=== PATIENT | male | born 1965 | race Caucasian/White ===

== ENCOUNTER 2022-09-21 11:47 | Inpatient (IN) | payer MEDICARE, SELFPAY ==
[2022-09-21] VITALS (24 sets, daily range): BP systolic 80–114; BP diastolic 57–87; PULSE 80–152; RESP 20–34; TEMP 36.1–36.4; O2SAT 88–98; BMI 19.3; BMI 18.7
--- NOTE | 2022-09-21 12:23 | ECG_ITS ---
[facility] Test Date: 2022-09-21 Pat Name: Ayo Ann Department: Room: Gender: Male Mail Inserter: : 1965 Requested By: Ivory aVllejo Order Number: [id number] Ellison MD: Jana Fragoso M.D. Measurements Intervals [place] Rate: 113 P: 0 NM: 0 QRS: 102 QRSD: 87 T: 270 QT: 309 QTc: 424 Interpretive Statements ATRIAL FLUTTER/TACHYCARDIA WITH RAPID VENTRICULAR RESPONSE RIGHT AXIS DEVIATION [QRS AXIS > 100] ST DEVIATION AND MODERATE T-WAVE ABNORMALITY, CONSIDER INFERIOR ISCHEMIA [-0.1+ mV T-WAVE IN II/aVF] No previous ECG available for comparison Electronically Signed On 09-21-2022 21:59:30 RESTAURANT RECRUITER by Jana Fragoso M.D. [id number]
--- NOTE | 2022-09-21 12:23 | XR_ITS ---
WS: [id number] PORTABLE CHEST HISTORY: chest pain COMPARISON: 07/03/2009 Hyperexpanded lungs. Very mild interstitial thickening. No mass or consolidation. No pleural effusion or pneumothorax. Bilateral nipple shadows are present. Cardiac size: Normal. Mediastinum/Aorta: Normal mediastinum. No osseous abnormality seen. XR/XR chest 1V portable [id number] IMPRESSION: Mild interstitial thickening similar to prior studies. No pneumonia.
--- NOTE | 2022-09-21 12:26 | ED_ITS ---
HPI - SOB/Dyspnea General: Chief Complaint: Shortness of Breath/Dyspnea Stated Complaint: Chest pain and SOB Time Seen by Provider: 09/21/22 12:22 History of Present Illness: HPI Narrative: 56-year-old male with a self-reported history of congestive heart failure and with concerns of shortness of breath and palpitations and racing heart. Patient reports that over the past several months to a year he has had some episodes where his heart will race but usually it will slow down and spontaneously edwige he will begin to feel better today that did not happen in fact it got a little bit worse and that prompted him to come into the emergency department he is a lifelong smoker he just recently stopped smoking. He is short of breath and this is worse with exertion patient denies any recent evaluation by ER physician. Associated symptoms: Reports chest congestion and palpitations; Deny chest pain, hemoptysis or lightheadedness Review of Systems Card: Reports: palpitations and irregular heart rhythm; Denies: chest pain, edema, swelling of feet/ankles or lightheadedness Resp: Reports: dyspnea and chest congestion; Denies: productive cough, non-productive cough, wheezing or hemoptysis Skin/Breast: Denies: rash, pruritus, erythema or skin swelling Physical Exam Const: GENERAL APPEARANCE: in distress OTHER: Thin and chronically ill in appearance Resp: COMMON NORMALS: clear to auscultation bilaterally AUSCULTATION: clear to auscultation bilaterally Cardio: RATE: tachycardic RHYTHM: abnormal rhythm Extremity: NARRATIVE EXTREMITY EXAM: No pedal edema or cyanosis Skin: COMMON NORMALS: no rashes or lesions noted GENERAL SKIN EXAM: no rashes or lesions noted Course Vital Signs: Vital signs: Vital Signs Temperature 97.6 F 09/21/22 11:51 Pulse Rate 112 H 09/21/22 13:00 Respiratory Rate 23 H 09/21/22 13:00 Blood Pressure 114/87 09/21/22 13:00 Pulse Oximetry 95 09/21/22 13:00 Oxygen Delivery Me thod 09/21/22 11:51 MDM - SOB/Dyspnea Medical Decision Making 56-year-old in with concerns of rapid heartbeat and shortness of breath. Dif ferential is broad but it appears that he has atrial fibrillation. We will give him a Cardizem push and standard work-up and reassess. Unfortunately the patient only transiently responded to the Cardizem we will start a drip and plan on admit him into the hospital for further work-up and evaluation. He does appear to be a little bit dry his potassium is just a little bit elevated as well we will give him some IV fluids and closely follow this. I discussed the case with the hospitalist who is agreeable to admit him and cardiac stepdown. We will give a dose of Eliquis to mitigate his thromboembolic events, continue to titrate up Cardizem drip at this point I do not think that he needs cardioverted is not overtly symptomatic and I think if we could get Cardizem titrated his blood pressure would improve somewhat. Differential Diagnosis Likely acute exacerbation of chronic obstructive airways disease, congestive heart failure, community acquired pneumonia, asthma with exacerbation and pulmonary embolism Lab Data 09/21/22 12:24 09/21/22 12:24 Labs/Radiology: Radiology Impressions Chest X-Ray 09/21/22 12:23 IMPRESSION: Mild interstitial thickening similar to prior studies. No pneumonia. Laboratory Results WBC 10.0 10^3/uL (4.0-10.0) 09/21/22 12:24 RBC 4.43 10^6/uL (4.1-5.3) 09/21/22 12:24 Hgb 13.7 g/dL (11.7-16.6) 09/21/22 12:24 Hct 42.8 % (42.0-52.0) 09/21/22 12:24 MCV 96.6 fl (80-94) H 09/21/22 12:24 MCH 30.9 pg (28.0-34.0) 09/21/22 12:24 MCHC 32.0 g/dL (30.0-36.0) 09/21/22 12:24 RDW 15.9 % (12.1-15.1) H 09/21/22 12:24 Plt Count 420 10^3/cmm (130-400) H 09/21/22 12:24 MPV 9.4 fL (7.4-10.4) 09/21/22 12:24 Neut % (Auto) 75.3 % 09/21/22 12:24 Lymph % (Auto) 16.2 % 09/21/22 12:24 [place]on % (Auto) 7.7 % 09/21/22 12:24 Eos % (Auto) 0.3 % 09/21/22 12:24 Baso % (Auto) 0.3 % 09/21/22 12:24 Neut # (Auto) 7.52 10^3/uL (1.8-7.7) 09/21/22 12:24 Lymph # (Auto) 1.6 10^3/uL (0.8-4.8) 09/21/22 12:24 Haralson # (Auto) 0.8 10^3/uL (0.2-0.9) 09/21/22 12:24 Eos # (Auto) 0.0 10^3/uL (0.0-0.8) 09/21/22 12:24 Baso # (Auto) 0.0 10^3/uL (0.0-0.1) 09/21/22 12:24 Nucleated RBC % (auto) 0 % 09/21/22 12:24 Nucleated RBCs # 0.0 /100WBC 09/21/22 12:24 Sodium 133 mmol/L (136-145) L 09/21/22 12:24 Potassium 5.9 mmol/L (3.5-5.1) H 09/21/22 12:24 Chloride 95 mmol/L (98-107) L 09/21/22 12:24 Carbon Dioxide 29 mmol/L (22-29) 09/21/22 12:24 Anion Gap 14.9 (5-19) 09/21/22 12:24 BUN 36 mg/dL (6-20) H 09/21/22 12:24 Creatinine 0.8 mg/dL (0.7-1.2) 09/21/22 12:24 GFR Calculation 100.4 mL/min (90-130) 09/21/22 12:24 Glucose 175 mg/dL (65-115) H 09/21/22 12:24 Calculated Osmolality 289 mOsm/kg (285-295) 09/21/22 12:24 Calcium 9.7 mg/dL (8.5-10.5) 09/21/22 12:24 Total Bilirubin 0.5 mg/dL (0.15-1.2) 09/21/22 12:24 AST 52 U/L (0-40) H 09/21/22 12:24 ALT 78 U/L (0-41) H 09/21/22 12:24 Alkaline Phosphatase 91 U/L (40-130) 09/21/22 12:24 Troponin T Baseline 56 ng/L (0-15) H 09/21/22 12:24 Troponin T 120 Minute 56.34 ng/L (0-15) H 09/21/22 14:08 Delta Troponin T 0.34 ABS# (0-10) 09/21/22 14:08 NT-Pro-B Natriuret Pep 9524 pg/mL (0-125) H 09/21/22 12:24 Total Protein 6.2 g/dL (6.6-8.7) L 09/21/22 12:24 Albumin 3.6 g/dL (3.5-5.2) 09/21/22 12:24 Globulin 2.6 g/dL (1.3-4.6) 09/21/22 12:24 Procalcitonin 0.06 ng/mL (0-0.5) 09/21/22 12:24 EKG Data Atrial flutter with rapid ventricular response: Interpretation: Ventricular rate is 147 flutter waves present nonspecific ST-T wave changes regular rhythm Discharge Plan Discharge Patient Disposition: Admitted As Inpatient Clinical Impression: Atrial fibrillation with rapid ventricular response Condition: Stable Coding Level of Care Code ED Broadcast Correspondent for Wolfgang Fwd Exam Expanded Problem Focused
[2022-09-21] MEDS: dilTIAZem 5 mg/mL SDV 5 mL 20 MG IVP (12:31)
[2022-09-21 12:36] LABS: Basophils % 0.3 %; Eosinophils % 0.3 %; Hematocrit 42.8 % (42.0-52.0); Hemoglobin 13.7 g/dL (11.7-16.6); Lymphocytes # 1.6 10^3/uL (0.8-4.8); Lymphocytes % 16.2 %; Mean Corpuscular Hemoglobin 30.9 pg (28.0-34.0); Mean Corpuscular Volume 96.6 fl (80-94); Mean Platelet Volume 9.4 fL (7.4-10.4); Monocytes # 0.8 10^3/uL (0.2-0.9); Monocytes % 7.7 %; Neutrophils # 7.52 10^3/uL (1.8-7.7); Neutrophils % 75.3 %; Nucleated Red Blood Cells % 0 %; Platelet Count 420 10^3/cmm (130-400); Red Blood Count 4.43 10^6/uL (4.1-5.3); Red Cell Distribution Width 15.9 % (12.1-15.1)
[2022-09-21 12:49] LABS: Troponin(5th) Baseline 56 ng/L (0-15)
[2022-09-21 12:57] LABS: NT Pro B Type Natriuretic Pept 9524 pg/mL (0-125); Procalcitonin 0.06 ng/mL (0-0.5)
[2022-09-21 13:08] LABS: Alanine Aminotransferase 78 U/L (0-41); Albumin Level 3.6 g/dL (3.5-5.2); Alkaline Phosphatase 91 U/L (40-130); Anion Gap 14.9 (5-19); Aspartate Amino Transferase 52 U/L (0-40); Blood Urea Nitrogen 36 mg/dL (6-20); Calcium 9.7 mg/dL (8.5-10.5); Carbon Dioxide 29 mmol/L (22-29); Chloride 95 mmol/L (98-107); Globulin 2.6 g/dL (1.3-4.6); Glomerular Filtration Rate 100.4 mL/min (90-130); Glucose 175 mg/dL (65-115); Osmolality Calculated 289 mOsm/kg (285-295); Potassium 5.9 mmol/L (3.5-5.1); Sodium 133 mmol/L (136-145); Total Bilirubin 0.5 mg/dL (0.15-1.2); Total Protein 6.2 g/dL (6.6-8.7)
[2022-09-21] MEDS: dilTIAZem 100 MG in sodium chloride 0.9% (add-van) 100 ML IV (14:24)
--- NOTE | 2022-09-21 14:26 | ECG_ITS ---
[facility] Test Date: 2022-09-21 Pat Name: Ayo Ann Department: Room: Gender: Male Napper Fixer: : 1965 Requested By: Ivory Vallejo Order Number: [id number] Terra MD: Jana Fragoso M.D. Measurements Intervals [place] Rate: 149 P: 0 OR: 0 QRS: 136 QRSD: 92 T: 0 QT: 279 QTc: 440 Interpretive Statements ATRIAL FLUTTER/TACHYCARDIA WITH RAPID VENTRICULAR RESPONSE RIGHT AXIS DEVIATION ST ELEVATION, CONSIDER SEPTAL INJURY Compared to ECG 09/21/2022 12:42:39 ST (T wave) deviation now present T-wave abnormality no longer present Possible ischemia no longer present Electronically Signed On 09-21-2022 22:16:06 BODY AND FRAME MAN by Jana Fragoso M.D. [id number]
[2022-09-21 14:39] LABS: Troponin 5 2HR 56.34 ng/L (0-15); Troponin 5 2HR Delta 0.34 ABS# (0-10)
[2022-09-21] MEDS: sodium chloride 0.9% 500 ML 999 ML IV (14:39)
[2022-09-21] MEDS: apixaban 5 mg Tablet PO (15:41)
[2022-09-21 15:53] LABS: Magnesium 1.9 mg/dL (1.7-2.3)
--- NOTE | 2022-09-21 16:06 | PM.HP ---
Providers/Chief Complaint Admitting Physician: Vu Holder MD Chief Complaint: Chest pain and SOB History of Present Illness Ayo Ann is a 56 year old male with past medical history of nonischemic cardiomyopathy secondary to alcohol abuse, noncompliance last seen by cardiology in 2011, chronic smoker, last known EF of around 50% presents to the ER today because of chest pain along with difficulty in breathing. In the ER he was found to be in atrial fibrillation with rapid ventricular response. Patient denies any nausea, vomiting, headache, dizziness. He is a current smoker. Denies any current alcohol or recreational drug abuse. Not on any medications and has not seen a physician in a long time. In the ER he was started on Cardizem drip after Cardizem push. Currently on Cardizem drip of 5. Blood pressures 109/71 with heart rate running in 150s. Patient sitting comfortably in bed without complaining of palpitations or dizziness or chest pain currently. Review of Systems General: Reports: 10 or more systems reviewed and unremarkable except in HPI and below Const: Denies: fever(s), chills, body aches, change in appetite, change in weight, malaise, night sweats, diaphoresis, change in sleep pattern, daytime sleepiness or snoring Eyes: Denies: change in vision, blurry vision, photophobia, eye discomfort or eye discharge ENMT: Denies: throat pain, enlarged tonsils, hoarseness, mouth pain, oral sores, dry mouth, tinnitus, nasal congestion or post nasal drip Card: Denies: chest pain, palpitations, irregular heart rhythm, edema, swelling of feet/ankles, lightheadedness, syncope, pre-syncope, dyspnea on exertion, orthopnea, leg pain with exertion or acrocyanosis Resp: Denies: dyspnea, productive cough, non-productive cough, wheezing, stridor, pain on inspiration, change in phlegm color, hemoptysis or chest congestion GI: Denies: abdominal pain, nausea, vomiting, hematemesis, coffee ground emesis, dysphagia, heartburn, diarrhea, constipation, bloating, GI cramping, change in bowel habits, pain on defecation, hematochezia or melena : Denies: flank pain, difficulty urinating, dysuria, urinary frequency, urinary urgency, urinary hesitancy, urinary dribbling, difficulty starting urination, change in urine stream, nocturia or hematuria Musc: Denies: neck pain, back pain, extremity pain, joint pain, joint swelling, joint redness, joint stiffness or limited range of motion Neuro: Denies: headache(s), numbness in extremities, weakness in extremities, sensory changes, lack of coordination, difficulty walking, frequent falls, dizziness, vertigo, confusion, Slurred speech present, difficulty communicating thoughts or seizure-like activity Psych: Denies: anxiety, depression, mood swings, panic attacks, hopelessness or irritability Endo: Denies: polyuria, polydipsia, tired all the time, cold intolerance, excessive sweating, flushing or heat intolerance Luis Daniel/Lymph: Denies: easy bruising or easy bleeding All/Imm: Denies: tongue swelling, facial swelling or acute wheezing Medications/Allergies Home Medications Medication Instructions Recorded Confirmed Last Taken Type Fishbiotic Amoxil 500mg 500 mg PO DAILY 09/21/22 09/21/22 09/16/22 History stop taking 09/16/22 aspirin 325 mg tablet 325 mg PO BID PRN Headache 09/21/22 09/21/22 Unknown History multivitamin 1 tab PO DAILY 09/21/22 09/21/22 Unknown History Allergies Allergy/AdvReac Type Severity Reaction Status Date / Time trazodone Allergy peritonitis Verified 09/21/22 13:58 PFSH Acute PFSH: Medical History Alcohol abuse Congestive heart failure HTN (hypertension) Non-compliance Non-ischemic cardiomyopathy Patella fracture Smoker Family History (Updated 09/21/22 @ 16:09 by Vu Holder MD) Other CAD (coronary artery disease) Social History (Updated 09/21/22 @ 16:09 by Vu Holder MD) Smoking and tobacco status: current every day smoker Alcohol intake: former Substance/Drug Use: unknown Lives independently: Yes Household members: spouse Housing: House Vitals/I&O/Wt Last Vital Signs Temp 97.6 F 09/21/22 11:51 Pulse 151 H 09/21/22 15:21 Resp 24 H 09/21/22 15:21 BP 109/71 09/21/22 15:21 Pulse Ox 97 09/21/22 15:21 O2 Del Method 09/21/22 15:26 09/21/22 09/21/22 09/21/22 06:59 14:59 22:59 Intake Total 1.25 / 1.25 Balance 1.25 / 1.25 Weight last 48 hrs Weight 59.33 kg Weight 61.235 kg Physical Exam Narrative: General: No acute distress, AO x3 HEENT: PERRLA, pupils bilaterally equal and reactive Chest: Normal vesicular breath sounds, no added sounds, equal good air entry bilaterally CVS: S1-S2 irregularly irregular, tachycardia, no murmurs, no gallops, no rubs Abdomen: Soft, nontender, no organomegaly, bowel sounds present Neuro: No focal deficits, no facial deformity, AO x3, power 5/5 in all limbs Data 09/21/22 12:24 09/21/22 12:24 A&P Assessment and plan (1) Atrial fibrillation with rapid ventricular response: Given history of cardiomyopathy, borderline blood pressures for now we will switch over to amiodarone. Stop Cardizem drip. IV amiodarone 150 push followed by amiodarone drip. Given Eliquis 5 mg in the ER. For now will continue with full dose anticoagulation with 1 mg/kg body weight every 12 Lovenox. We will transition over to oral anticoagulation on discharge. Check TSH, urine drug screen, alcohol level. Check echocardiogram once heart rate better controlled. (2) Shortness of breath: Most likely secondary to combination of congestive heart failure and baseline COPD. Check D-dimer. Depending on D-dimer we will plan for CTA versus CT chest. No concerns for pneumonia for now. Check procalcitonin. Ipratropium, Xopenex every 6 hours, budesonide twice daily. Strict input output charting. Daily weights. Daniele IV Lasix 40 mg one-time. Will dose Lasix as per fluid status. Echocardiogram as above. (3) Non-ischemic cardiomyopathy: Last known EF 50% as per chart review in 2011. As per documentation concerns for alcohol induced cardiomyopathy. Echocardiogram once heart rate better. Cycle troponins. Patient would benefit from ischemic work-up once more stable. (4) HTN (hypertension): Goal blood pressure less than 140/90 MNG with mean over 65. (5) Non-compliance: History of cardiomyopathy, hypertension as above. Not on medication has not seen a physician in many years. (6) Smoker: States he is weaning down. Last smoking 2 to 3 days ago. Does not want nicotine patch for now. Plan Full code Low-salt cardiac diet. Full dose Lovenox will suffice for DVT prophylaxis Famotidine for PUD prophylaxis Attestations Medical Necessity Statement*: Admission for more than 2 midnights for management of atrial fibrillation with rapid ventricular response in a patient with history of noncompliance, alcohol induced nonischemic cardiomyopathy, shortness of breath secondary to congestive heart failure and COPD exacerbation Time Spent in Patient Care: Greater than 35 minutes Coding Level of Care Code Acute Code for [facility] Fwd Diagnoses Atrial fibrillation with rapid ventricular response I48.91 Shortness of breath R06.02 Non-ischemic cardiomyopathy I42.8 HTN (hypertension) I10 Non-compliance Z91.199 Smoker F17.200
[2022-09-21 16:23] LABS: D Dimer 1.36 ug/mIFEU (0-0.59)
[2022-09-21 16:33] LABS: Procalcitonin 0.06 ng/mL (0-0.5)
[2022-09-21 16:40] LABS: Thyroid Stimulating Hormone 4.18 uIU/mL (0.27-4.20); Vitamin B12 1310 pg/mL (232-1245)
[2022-09-21 16:41] LABS: Alcohol Level < 10 mg/dL (0-10)
[2022-09-21 16:42] LABS: INR 1.36 (0.8-1.2)
[2022-09-21] MEDS: amiodarone 50 mg/mL SDV 3 mL 150 MG IVP (16:49)
[2022-09-21 16:50] LABS: Iron 31 ug/dL (59-158); Percent Saturation 9.1 % (20-50); Total Iron Binding Capacity 338 mcg/dl; Unsaturated Iron Binding 307 ug/dL (112-347)
[2022-09-21] MEDS: famotidine 20 mg/2 mL INJ IVP (16:53)
[2022-09-21] MEDS: FUROsemide 10 mg/mL SDV 4mL 40 MG IVP (17:12)
[2022-09-21] MEDS: docusate sodium 100 mg Capsule PO (17:13)
[2022-09-21] MEDS: dextrose 50% syringe 50 mL IVP (17:14)
[2022-09-21] MEDS: insulin regular-human 10 UNIT in SYRINGE 1 EACH IVP (17:16)
[2022-09-21] MEDS: sodium chloride 0.9% 500 ML 250 ML IV (17:25)
--- NOTE | 2022-09-21 18:11 | PC.NURSE ---
Late Entry 09/21/2022 @ 1520: arrived to unit from ER. O2 in place and cardizem drip in place. New order per Dr. Beth to d/c cardizem drip and give amiodarone bolus and drip. During bolus pt c/o increased SOB and CP and became diaphoretic. Called Dr. Beth and bolus was stopped, but drip to be continued. Pt became hypotensive, was placed in trendelenburg and solumedrol givien IVP. Pts blood pressure @ 1815 is now 118/82. Reports he is feeling better and is now eating his dinner. Call light in reach. Sister at bedside. Will cont. to monitor.
--- NOTE | 2022-09-21 18:23 | ECG_ITS ---
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 Measurements Intervals [place] Rate: 144 P: 0 TN: 0 QRS: 102 QRSD: 98 T: -88 QT: 294 QTc: 455 Interpretive Statements ATRIAL FLUTTER WITH RAPID VENTRICULAR RESPONSE RIGHT AXIS DEVIATION [QRS AXIS > 100] PATTERN CONSISTENT WITH PULMONARY DISEASE ST ELEVATION CONSISTENT WITH INJURY, PERICARDITIS, OR EARLY REPOLARIZATION [ST ELEVATION W/O NORMALLY INFLECTED T-WAVE] NONSPECIFIC ST & T-WAVE ABNORMALITY Compared to ECG 09/21/2022 14:26:52 Early repolarization now present T-wave abnormality now present ST (T wave) deviation still present Electronically Signed On 09-23-2022 11:35:20 FREELANCE GRAPHIC DESIGNER by Jcarlos Andujar M.D. [id number]
--- NOTE | 2022-09-21 18:36 | PC.NURSE ---
dr shabazz called and asked for 500 cc ns bolus be stopped for now,since bp has improved.if pt drops bp through night ,may finish the bolus.
[2022-09-21 18:54] LABS: Add Urine Microscopic? YES; Bilirubin Urine Neg (Negative); Blood Urine Neg (Negative); Glucose Urine UA Norm (Normal); Ketones Urine Negative (Negative); Leukocyte Esterase Urine Negative (Negative); Nitrate Urine Negative (Negative); Protein Urine 1+ (Negative); Specific Gravity, Urine 1.015 (1.005-1.030); Urine Appearance Clear (CLEAR); Urine Color Yellow (Yellow); Urobilinogen Urine Neg (Negative); pH Urine 5 (5-7)
[2022-09-21 18:57] LABS: Amphetamines Screen Urine Negative (Negative); Barbiturates Screen Urine Negative (Negative); Benzodiazepines Screen Urine Negative (Negative); Cocaine Screen Urine Negative (Negative); Opiate Screen Urine Negative (Negative); PCP Screen Urine Negative (Negative); THC Screen Urine Negative (Negative)
[2022-09-21 19:04] LABS: RBC Urine 0-4 /hpf (0-2)
[2022-09-21 19:05] LABS: Add Urine Culture? No; Bacteria Urine TRACE /hpf; Mucus Urine TRACE /hpf; Squamous Epithelial Cell Urine 0-4 /hpf (0-5); WBC Urine 0-4 /hpf (0-5)
[2022-09-21 19:12] LABS: Troponin 5 6HR 60.39 ng/L (0-15); Troponin 5 6HR Delta 4.39 ng/L (0-12)
[2022-09-21 19:41] LABS: Folate Level 19.3 ng/mL (4.5-32.2)
[2022-09-21] MEDS: enoxaparin 60 mg/0.6 mL Syringe SUBCUT (20:10)
--- NOTE | 2022-09-21 20:45 | PC.NURSE ---
Bolus was restarted for BP 83/64.
[2022-09-21] MEDS: ondansetron 2 mg/ML SDV 2 mL 4 MG IVP (21:00)
[2022-09-21] MEDS: acetaminophen 325 mg Tablet 650 MG PO (21:02)
[2022-09-21] MEDS: calcium carbonate 500 mg Chew Tablet 1000 MG PO (22:13)
[2022-09-22] VITALS (47 sets, daily range): BP systolic 70–118; BP diastolic 47–87; PULSE 80–124; RESP 10–27; TEMP 36.1–36.3; O2SAT 71–98
--- NOTE | 2022-09-22 04:59 | PC.NURSE ---
Spoke with regarding patients BP 78/62, on amiodarone gtt. Patient has been running low BP throughout night but this is lowest. ordered 250ml bolus. Call back if BPs do not improve as patient may require ICU for pressers.
[2022-09-22 05:19] LABS: Basophils % 0.2 %; Hematocrit 45.6 % (42.0-52.0); Lymphocytes # 0.6 10^3/uL (0.8-4.8); Lymphocytes % 3.5 %; Mean Corpuscular HGB Conc 28.5 g/dL (30.0-36.0); Mean Corpuscular Hemoglobin 31.4 pg (28.0-34.0); Mean Corpuscular Volume 110.1 fl (80-94); Mean Platelet Volume 9.9 fL (7.4-10.4); Monocytes # 1.4 10^3/uL (0.2-0.9); Monocytes % 8.5 %; Neutrophils # 14.58 10^3/uL (1.8-7.7); Neutrophils % 87.1 %; Nucleated Red Blood Cells % 0 %; Platelet Count 327 10^3/cmm (130-400); Red Blood Count 4.14 10^6/uL (4.1-5.3); Red Cell Distribution Width 16.3 % (12.1-15.1); White Blood Count 16.7 10^3/uL (4.0-10.0)
[2022-09-22] MEDS: sodium chloride 0.9% 250 ML IV (05:24)
[2022-09-22 05:50] LABS: Albumin Level 3.3 g/dL (3.5-5.2); Alkaline Phosphatase 95 U/L (40-130); Anion Gap 30.2 (5-19); Blood Urea Nitrogen 47 mg/dL (6-20); Calcium 9.3 mg/dL (8.5-10.5); Carbon Dioxide 17 mmol/L (22-29); Chloride 94 mmol/L (98-107); Chol HDL Ratio 3.29 mg/dL (1.0-5.00); Cholesterol 148 mg/dL (0-200); Globulin 2.9 g/dL (1.3-4.6); Glomerular Filtration Rate 34.9 mL/min (90-130); Glucose 84 mg/dL (65-115); HDL Cholesterol 45 mg/dL (60-100); LDL Cholesterol Calculated 88 mg/dL (50-129); Magnesium 2.3 mg/dL (1.7-2.3); Osmolality Calculated 293 mOsm/kg (285-295); Potassium 5.2 mmol/L (3.5-5.1); Sodium 136 mmol/L (136-145); Total Bilirubin 1.5 mg/dL (0.15-1.2); Total Protein 6.2 g/dL (6.6-8.7); Triglycerides 76 mg/dL (0-150); VLDL Cholestrol Calculation 15 mg/dL (0-30)
[2022-09-22 05:51] LABS: Estmated Average Glucose 134; Hemoglobin A1C 6.3 % (4.0-6.0)
[2022-09-22] MEDS: famotidine 20 mg/2 mL INJ IVP (06:08)
[2022-09-22 06:09] LABS: Alanine Aminotransferase 1298 U/L (0-41)
[2022-09-22 06:11] LABS: Aspartate Amino Transferase 1489 U/L (0-40)
[2022-09-22 06:12] LABS: Phosphorus 9.9 mg/dL (2.5-4.5)
--- NOTE | 2022-09-22 06:50 | PC.NURSE ---
Spoke with regarding patients BP still running low, 70/56. ordered to transfer patient to ICU for levophed. Nurse called to make cottage supervisor aware. made aware of patient phosporus level of 9.9, no new orders for that at this time.
--- NOTE | 2022-09-22 07:00 | USCV_ITS ---
Ayo Ann Age: 56 Gender: M : 1965 Exam Date: 09/22/2022 08:35 Ordering Phys: Argentina Mejia MD Technologist: ONEYDA Exam Location: [facility] [place] Indication: cardiac shock BP: / HR: 102 Rhythm: Atrial flutter Technical Quality: Adequate MEASUREMENTS (Male / Female) Normal Values 2D ECHO LV Diastolic Diameter PLAX 6.1 cm 4.2 - 5.9 / 3.9 - 5.3 cm LV Systolic Diameter PLAX 5.5 cm IVS Diastolic Thickness 0.8 cm 0.6 - 1.0 / 0.6 - 0.9 cm IVS Systolic Thickness 0.7 cm LVPW Diastolic Thickness 0.7 cm 0.6 - 1.0 / 0.6 - 0.9 cm LVPW Systolic Thickness 1.0 cm LVOT Diameter 2.0 cm LV Ejection Fraction 2D Teich 21.7 % LV Ejection Fraction MOD 2C 18.5 % LV Ejection Fraction 2C AL 18.0 % LA Diameter 4.2 cm M-MODE Aortic Annulus Diameter 2.7 cm LA Ao Ratio MM 1.6 MV E Point Septal Separation 1.6 cm DOPPLER AV Peak Velocity 129.0 cm/s LVOT Peak Velocity 124.0 cm/s AV Area Cont Eq vti 3.0 cm squared AV Area Cont Eq pk 3.1 cm squared MV E' Velocity 14.0 cm/s TR Peak Velocity 218.6 cm/s TR Peak Gradient 19.1 mmHg TV Peak E Velocity 74.0 cm/s Right Atrial Pressure 9.0 mmHg Pulmonary Artery Systolic Pressu 28.1 mmHg PV Peak Velocity 82.0 cm/s FINDINGS Left Ventricle Technically limited quality echocardiogram. Left ventricle is dilated. LV systolic function is severely reduced with EF of 5- 10%. Severe global hypokinesis is seen. Right Ventricle Severe hypokinesis. Right Atrium Severely dilated Left Atrium Dilated Mitral Valve Structurally normal. Moderate mitral regurgitation. Aortic Valve Aortic valve is thickened. No significant stenosis. Tricuspid Valve Moderate to severe tricuspid regurgitation. In some views, there is echogenic structure seen close to tricuspid valve. It may be artifact. RVSP is 35-40mmHg. This is consistent with mild pulmonary hypertension. Pulmonic Valve Not well visualized Pericardium Normal Aorta Not well visualized IVC Appears to be normal CONCLUSIONS Left ventricle is dilated. LV systolic function is severely reduced with EF of 5 to 10%. Severe hypokinesis of right ventricular Biatrial dilation Moderate mitral regurgitation Moderate to severe tricuspid regurgitation. In some views, there is echogenic structure seen close to tricuspid valve. It may be attenuation artifact. YUSEF can be considered once patient is stable Mild pulmonary hypertension No comparison studies are available Jcarlos Andujar MD (Electronically Signed) Final Date: 22 September 2022 11:31 S
--- NOTE | 2022-09-22 07:00 | CTR_ITS ---
PROCEDURE INFORMATION: Exam: CT Chest Without Contrast; Diagnostic Exam date and time: 09/22/2022 10:48 AM Age: 56 years old Clinical indication: Other: Sepsis, evalute for pneumonia, hydronephrosis franck, liver and gb TECHNIQUE: Imaging protocol: Diagnostic computed tomography of the chest without contrast. Total images: 108 Radiation optimization: All CT scans at this facility use at least one of these dose optimization techniques: automated exposure control; mA and/or kV adjustment per patient size (includes targeted exams where dose is matched to clinical indication); or iterative reconstruction. Other protocol: This patient has received [address] and 0 known cardiac nuclear medicine studies in the 12 months prior to the current study. COMPARISON: CR XR chest 1V portable [id number] 09/21/2022 12:28 PM RADIATION DOSE METRICS: Total DLP (mGy-cm): 555.64 FINDINGS: Lungs: Compressive atelectasis of the lungs. Moderate centrilobular emphysematous changes are present. 6 mm nodule in the right lower lobe series 6, image 67. 2 mm nodule seen in the left upper lobe series 6, image 36 and 4 mm nodule in the left upper lobe series 6, image 39. 4 mm nodule in the left lower lobe series 6, image 90. Pleural spaces: Small bilateral pleural effusions are present. Heart: Cardiomegaly. Coronary arteries: No coronary arterial calcification is detected. Lymph nodes: Unremarkable. No enlarged lymph nodes. Vasculature: Unremarkable. No aortic aneurysm. Bones/joints: Unremarkable. No acute fracture. Soft tissues: Unremarkable. months. (Reference: Jim) COMMENTS: In the absence of a history or active diagnosis of lung cancer, it is recommended that this patient with emphysema be evaluated for enrollment in a low dose CT lung cancer screening program. REFERENCES: Jim Villatoro et al. Guidelines for Management of Incidental Pulmonary Nodules Detected on CT Images: From the Fleischner Society 2017. Radiology. 2017;284(1):228-243. PROCEDURE INFORMATION: Exam: CT Abdomen And Pelvis Without Contrast Exam date and time: 09/22/2022 10:48 AM Age: 56 years old Clinical indication: Other: Sepsis, evalute for pneumonia, hydronephrosis franck, liver and gb TECHNIQUE: Imaging protocol: Computed tomography of the abdomen and pelvis without contrast. Radiation optimization: All CT scans at this facility use at least one of these dose optimization techniques: automated exposure control; mA and/or kV adjustment per patient size (includes targeted exams where dose is matched to clinical indication); or iterative reconstruction. Other protocol: This patient has received [address] and 0 known cardiac nuclear medicine studies in the 12 months prior to the current study. COMPARISON: CR XR chest 1V portable [id number] 09/21/2022 12:28 PM RADIATION DOSE METRICS: Total DLP (mGy-cm): 555.64 FINDINGS: Mediastinal space: Fluid within the esophageal lumen, likely indicating gastroesophageal reflux. Liver: Normal. No mass. Gallbladder and bile ducts: Dense material filling gallbladder lumen most likely representing sludge or small stones with diffuse edematous gallbladder wall thickening suggesting cholecystitis. Pancreas: Normal. No ductal dilation. Spleen: Normal. No splenomegaly. Adrenal glands: Normal. No mass. Kidneys and ureters: Normal. No hydronephrosis. Stomach and bowel: Colonic diverticulosis is present without diverticulitis. Mild wall thickening of the ascending colon may be secondary to incomplete distension versus colitis. Appendix: No evidence of appendicitis. Intraperitoneal space: A small volume of intra-abdominal ascites is present. Vasculature: Mild atherosclerotic disease is evident. Lymph nodes: Unremarkable. No enlarged lymph nodes. Urinary bladder: There is nonspecific urinary bladder wall thickening, under distention versus cystitis. Reproductive: Unremarkable as visualized. Bones/joints: Unremarkable. No acute fracture. Soft tissues: Small amount of subcutaneous emphysema noted along the anterior abdominal wall may be related to recent procedure. Body wall edema noted. CT/[place] [id number] IMPRESSION: 1. Cardiomegaly. 2. Small bilateral pleural effusions with compressive atelectasis. 3. Moderate centrilobular emphysematous changes are present. 4. 6 mm and smaller bilateral pulmonary nodules. For patients at low risk (minimal or absent history of smoking and of other known risk factors), no routine follow-up is indicated. For patients at high risk (history of smoking or of other known risk factors), consider optional CT Chest at 12 IMPRESSION: 1. Dense material filling gallbladder lumen most likely representing sludge or small stones with diffuse edematous gallbladder wall thickening suggesting cholecystitis. Ultrasound could be considered to further define. 2. A small volume of intra-abdominal ascites is present. 3. Mild wall thickening of the ascending colon may be secondary to incomplete distension versus colitis. 4. There is nonspecific urinary bladder wall thickening, under distention versus cystitis. Consider urinalysis.
--- NOTE | 2022-09-22 07:08 | PC.NURSE ---
Called and gave report to ICU, patient being transfered to room ICU 11 wi all belongings and chart.
--- NOTE | 2022-09-22 07:54 | PC.NURSE ---
recieved from floor this am with noted blood pressure decrease iv levophed gtt started at this time .. attempted to swab pt he refused and after lg amts of conversation did swab but demanded water .. small amt and ice chips given . pt upset not wanting to be in hospital
[2022-09-22] MEDS: budesonide 0.5 mg/2 mL Neb INHALATION (08:14)
[2022-09-22] MEDS: ipratropium 0.5 mg/2.5 mL Neb INHALATION (08:14)
[2022-09-22] MEDS: levalbuterol 0.63 mg/3 mL Neb INHALATION (08:14)
[2022-09-22 08:18] LABS: Lactate (Lactic Acid level) 9.4 mmol/L (0.5-2.2)
[2022-09-22 08:45] LABS: Hepatitis A Antibody IgM Non-Reactive (Nonreactive); Hepatitis B Core AB, Total Non-Reactive (Nonreactive); Hepatitis B Surface Antigen Non-Reactive (Nonreactive); Hepatitis C Virus Antibody Non-Reactive (Nonreactive)
[2022-09-22] MEDS: docusate sodium 100 mg Capsule PO (08:51)
[2022-09-22] MEDS: enoxaparin 60 mg/0.6 mL Syringe SUBCUT ×2 (08:51→10:09)
[2022-09-22 08:59] LABS: Hepatitis B Surface AB < 3.5 (11.5-1000)
--- NOTE | 2022-09-22 09:19 | PC.NURSE ---
refused to take am colace and lovenox shot continue to increase levophed for blood pressure heart rate down at this time
[2022-09-22 09:34] LABS: Adenovirus Not Detected (NOT DETECT); Chlamydia Pneumoniae Not Detected (NOT DETECT); Coronavirus 229E,HKU1,NL63,OC4 Not Detected (NOT DETECT); Human Metapneumovirus Not Detected (NOT DETECT); Human Rhinovirus/Enterovirus Not Detected (NOT DETECT); Influenza A Not Detected (NOT DETECT); Influenza A H1 Not Detected (NOT DETECT); Influenza A H1-2009 Not Detected (NOT DETECT); Influenza A H3 Not Detected (NOT DETECT); Influenza B Not Detected (NOT DETECT); Mycoplasma Pneumoniae Not Detected (NOT DETECT); Parainfluenza Virus Type 1 Not Detected (NOT DETECT); Parainfluenza Virus Type 2 Not Detected (NOT DETECT); Parainfluenza Virus Type 3 Not Detected (NOT DETECT); Parainfluenza Virus Type 4 Not Detected (NOT DETECT); Respiratory Syncytial Virus A Not Detected (NOT DETECT); Respiratory Syncytial Virus B Not Detected (NOT DETECT); SARS-COV-2 Not Detected (NOT DETECT)
--- NOTE | 2022-09-22 10:20 | PM.PN ---
Vitals/I&O/Wt Last Vital Signs Temp 96.9 F L 09/22/22 04:00 Pulse 92 09/22/22 09:15 Resp 12 09/22/22 09:15 BP 84/51 09/22/22 09:15 Pulse Ox 94 09/22/22 09:15 O2 Del Method 09/22/22 08:18 O2 Flow Rate 2 09/22/22 08:18 09/21/22 09/22/22 09/22/22 22:59 06:59 14:59 Intake Total 1553.613 / 1554.863 730.000 / 2284.863 305.245 / 305.245 Output Total 100 / 100 Balance 1453.613 / 1454.863 730.000 / 2184.863 305.245 / 305.245 Weight last 48 hrs Weight 60.583 kg Weight 59.33 kg Weight 61.235 kg Physical Exam Narrative: General: No acute distress, AO x3 HEENT: PERRLA, pupils bilaterally equal and reactive Chest: Normal vesicular breath sounds, no added sounds, equal good air entry bilaterally CVS: S1-S2 irregularly irregular, tachycardia, no murmurs, no gallops, no rubs Abdomen: Soft, nontender, no organomegaly, bowel sounds present Neuro: No focal deficits, no facial deformity, AO x3, power 5/5 in all limbs Data 09/22/22 05:00 09/22/22 05:00 Micro: Microbiology 09/22/22 07:23 Blood Culture - Preliminary Blood SPECIMEN COLLECTED 09/22/22 07:23 Blood Culture - Preliminary Blood SPECIMEN COLLECTED 09/21/22 18:30 Legionella Urinary Antigen - Final Urine,Clean Catch A&P Assessment and plan (1) Cardiogenic shock: (2) Atrial fibrillation with rapid ventricular response: Given history of cardiomyopathy, borderline blood pressures for now we will switch over to amiodarone. Stop Cardizem drip. IV amiodarone 150 push followed by amiodarone drip. Given Eliquis 5 mg in the ER. For now will continue with full dose anticoagulation with 1 mg/kg body weight every 12 Lovenox. We will transition over to oral anticoagulation on discharge. Check TSH, urine drug screen, alcohol level. Check echocardiogram once heart rate better controlled. (3) Shortness of breath: Most likely secondary to combination of congestive heart failure and baseline COPD. Check D-dimer. Depending on D-dimer we will plan for CTA versus CT chest. No concerns for pneumonia for now. Check procalcitonin. Ipratropium, Xopenex every 6 hours, budesonide twice daily. Strict input output charting. Daily weights. Daniele IV Lasix 40 mg one-time. Will dose Lasix as per fluid status. Echocardiogram as above. (4) Non-ischemic cardiomyopathy: Last known EF 50% as per chart review in 2011. As per documentation concerns for alcohol induced cardiomyopathy. Echocardiogram once heart rate better. Cycle troponins. Patient would benefit from ischemic work-up once more stable. (5) HTN (hypertension): Goal blood pressure less than 140/90 MNG with mean over 65. (6) Non-compliance: History of cardiomyopathy, hypertension as above. Not on medication has not seen a physician in many years. (7) Smoker: States he is weaning down. Last smoking 2 to 3 days ago. Does not want nicotine patch for now. (8) AZEB (acute kidney injury): (9) Elevated lactic acid level: (10) Shock liver: Plan Full code Low-salt cardiac diet. Full dose Lovenox will suffice for DVT prophylaxis Famotidine for PUD prophylaxis Coding Level of Care Code Acute Code for [facility] Diagnoses Cardiogenic shock R57.0 Atrial fibrillation with rapid ventricular response I48.91 Shortness of breath R06.02 Non-ischemic cardiomyopathy I42.8 HTN (hypertension) I10 Non-compliance Z91.199 Smoker F17.200 AZEB (acute kidney injury) N17.9 Elevated lactic acid level R79.89 Shock liver K72.00
--- NOTE | 2022-09-22 10:33 | CTR_ITS ---
PROCEDURE INFORMATION: Exam: CT Head Without Contrast Exam date and time: 09/22/2022 10:45 AM Age: 56 years old Clinical indication: Other: Possible stroke, visual loss; Additional info: Possibe stroke, visual loss TECHNIQUE: Imaging protocol: Computed tomography of the head without contrast. Radiation optimization: All CT scans at this facility use at least one of these dose optimization techniques: automated exposure control; mA and/or kV adjustment per patient size (includes targeted exams where dose is matched to clinical indication); or iterative reconstruction. Other protocol: This patient has received [address] and 0 known cardiac nuclear medicine studies in the 12 months prior to the current study. COMPARISON: No relevant prior studies available. RADIATION DOSE METRICS: Total DLP (mGy-cm): 911.08 FINDINGS: Brain: There is an area of low-density with loss rivera-white matter differentiation in the right parietal lobe. No acute hemorrhage. No substantial mass effect or midline shift. Cerebral ventricles: No ventriculomegaly. Paranasal sinuses: Visualized sinuses are unremarkable. No fluid levels. Mastoid air cells: Visualized mastoid air cells are well aerated. Bones/joints: Unremarkable. No acute fracture. Soft tissues: Unremarkable. CT/CT head wo con* [id number] IMPRESSION: Findings appear consistent with an acute or early subacute infarct in the right parietal lobe. No acute hemorrhage.
--- NOTE | 2022-09-22 10:45 | P.CONIM_ITS ---
Providers/Reason For Consult Consulting Physician/Specialty*: Jcarlos Andujar MD/ Cardiology Reason for Consult*: Cardiogenic shock Requesting Physician: Dr Holder Attending Physician: Vu Holder MD History of Present Illness History of Present Illness Ayo Ann is a 56 year old male with past medical history of nonischemic cardiomyopathy who presented to the hospital with shortness of breath. He was found to be in A. fib with RVR. Overnight his blood pressures dropped and was put on Levophed. His heart rates are controlled now. Lactate is 9. Troponins did not go up significantly. NT proBNP is over 9000. Today patient is complaining of vision change. Saturating well on 2 L O2. Echo shows severe biventricular failure with EF of 5 to 10%. Has renal dysfunction Review of Systems Narrative: CONSTITUTIONAL: No fever chills weight loss or gain or night sweats. [] HEENT: Normocephalic, atraumatic.[] RESPIRATORY: Shortness of breath CARDIOVASCULAR: Has shortness of breath GI: no nausea vomiting diarrhea. [] SUPPLIER DIV[employer] DIRECTOR: No numbness, tingling, weakness or loss of function in any part of the body. [] MUSCULOSKELETAL: No knee or joint pain or rashes. [] Medications/Allergies Home Medications Medication Instructions Recorded Confirmed Last Taken Type Fishbiotic Amoxil 500mg 500 mg PO DAILY 09/21/22 09/21/22 09/16/22 History stop taking 09/16/22 aspirin 325 mg tablet 325 mg PO BID PRN Headache 09/21/22 09/21/22 Unknown History multivitamin 1 tab PO DAILY 09/21/22 09/21/22 Unknown History Allergies Allergy/AdvReac Type Severity Reaction Status Date / Time trazodone Allergy peritonitis Verified 09/21/22 13:58 Current Medications Generic Name Dose Route Start Last Admin Trade Name Freq PRN Reason Stop Dose Admin Budesonide 0.5 mg 09/21/22 20:00 09/22/22 08:14 Budesonide 0.5 Mg/2 Ml Neb INHALATION 0.5 mg BID.RESPIRATORY KOFI Administration Calcium Carbonate 1,000 mg 09/21/22 16:04 09/21/22 22:13 Calcium Carbonate 500 Mg Chew Tablet PO 1,000 mg Q4H PRN Administration DYSPEPSI Docusate Sodium 100 mg 09/21/22 18:00 09/22/22 08:51 Docusate Sodium 100 Mg Capsule PO 100 mg BID KOFI Administration Enoxaparin Sodium 60 mg 09/22/22 09:00 09/22/22 10:09 Enoxaparin 60 Mg/0.6 Ml Syringe SUBCUT 60 mg DAILY KOFI Administration Famotidine 20 mg 09/21/22 17:30 09/22/22 06:08 Famotidine 20 Mg/2 Ml Inj IVP 20 mg Q12H KOFI Administration Amiodarone HCl 900 mg/ 518 mls @ 0 mls/hr 09/21/22 16:00 09/21/22 22:48 Dextrose/ IV Miscellaneous IV 0.5 mg/min Supplies .Q0M KOFI 17.27 mls/hr Titration Protocol Per Protocol Norepinephrine Bitartrate 4 mg 254 mls @ 0 mls/hr 09/22/22 07:00 09/22/22 09 :47 / Dextrose IV 20 mcg/min .Q0M KOFI 76.2 mls/hr Titration Protocol Per Protocol Ipratropium [place] 0.5 mg 09/21/22 20:00 09/22/22 08:14 Ipratropium 0.5 Mg/2.5 Ml Neb INHALATION 0.5 mg Q6H.RESP KOFI Administration Levalbuterol HCl 0.63 mg 09/21/22 20:00 09/22/22 08:14 Levalbuterol 0.63 Mg/3 Ml Neb INHALATION 0.63 mg Q6H.RESP KOFI Administration Methylprednisolone Sodium Succinate 40 mg 09/22/22 06:00 09/22/22 06:08 Methylprednisolone Sod Succ 40 Mg/Ml Inj IVP 40 mg Q8H KOFI Administration Ondansetron HCl 4 mg 09/21/22 16:04 09/21/22 21:00 Ondansetron 2 Mg/Ml Sdv 2 Ml IVP 4 mg Q8H PRN Administration vomiting, or N/V if npo PFSH Acute PFSH: Medical History Alcohol abuse Congestive heart failure HTN (hypertension) Non-compliance Non-ischemic cardiomyopathy Patella fracture Smoker Family History Other CAD (coronary artery disease) Social History Smoking and tobacco status: current every day smoker Alcohol intake: former Substance/Drug Use: unknown Lives independently: Yes Household members: spouse Housing: House Vitals/I&O/Wt Last Vital Signs Temp 96.9 F L 09/22/22 04:00 Pulse 92 09/22/22 09:15 Resp 12 09/22/22 09:15 BP 84/51 09/22/22 09:15 Pulse Ox 94 09/22/22 09:15 O2 Del Method 09/22/22 08:18 O2 Flow Rate 2 09/22/22 08:18 09/21/22 09/22/22 09/22/22 22:59 06:59 14:59 Intake Total 1553.613 / 1554.863 730.000 / 2284.863 305.245 / 305.245 Output Total 100 / 100 Balance 1453.613 / 1454.863 730.000 / 2184.863 305.245 / 305.245 Weight last 48 hrs Weight 133 lb 9 oz Weight 130 lb 12.8 oz Weight 135 lb Physical Exam Narrative: GENERAL: Patient is alert, awake and oriented x3. Has vision changes[] NECK: No jugular vein distension. [] HEENT: No cyanosis. No icterus. No pallor. [] HEART: Regular S1 and S2. No murmur, rub or gallop. [] LUNGS: Decreased breath sounds CENTRAL NERVOUS SYSTEM: Grossly nonfocal. [] EXTREMITIES: Lower extremities with no edema Data 09/22/22 05:00 09/22/22 05:00 Micro: Microbiology 09/21/22 18:30 Bacterial Antigens - Final Urine Kidney 09/22/22 07:23 Blood Culture - Preliminary Blood SPECIMEN COLLECTED 09/22/22 07:23 Blood Culture - Preliminary Blood SPECIMEN COLLECTED 09/21/22 18:30 Legionella Urinary Antigen - Final Urine,Clean Catch A&P Assessment and plan (1) Cardiogenic shock: (2) AZEB (acute kidney injury): (3) Shock liver: (4) Elevated lactic acid level: (5) Non-compliance: (6) Atrial fibrillation with rapid ventricular response: (7) Non-ischemic cardiomyopathy: Plan Patient has nonischemic cardiomyopathy and has presented with shock. Heart rate is controlled. He has multiorgan failure with worsening renal and liver function. He has biventricular failure. Continue Levophed. Titrate pressors to keep MAP above 65. Can start dobutamine. His neurologic findings and vision change is concerning for stroke. Urgent CT head recommended. Continue broad spectrum antibiotics Consider transfer to tertiary care hospital for higher level of care and advanced heart failure availability. Thank you for involving us with care of this patient. We will continue to follow. Please call with question. Consult Attestations Medical Necessity Statement: Care expected to cross 2 midnights. Coding Level of Care Code Acute Code for [facility] Diagnoses Cardiogenic shock R57.0 AZEB (acute kidney injury) N17.9 Shock liver K72.00 Elevated lactic acid level R79.89 Non-compliance Z91.199 Atrial fibrillation with rapid ventricular response I48.91 Non-ischemic cardiomyopathy I42.8
[2022-09-22] MEDS: sodium bicarbonate 8.4% 1 mEq/mL 50mL Syr 100 MEQ IV (11:06)
[2022-09-22] MEDS: sodium chloride 0.9% 1,000 ML 50 ML IV (11:22)
[2022-09-22] MEDS: vancomycin 1,000 MG in sodium chloride 0.9% 250 ML 250 MG IV (11:41)
[2022-09-22] MEDS: piperacillin-tazobactam 3.375 GM in sodium chloride 0.9% (plus) 50 ML IV (11:49)
[2022-09-22] MEDS: DOBUTamine drip 500 MG/250 ML PREMIX IV (11:50)
[2022-09-22 11:52] LABS: Albumin Level 3.1 g/dL (3.5-5.2); Alkaline Phosphatase 91 U/L (40-130); Blood Urea Nitrogen 57 mg/dL (6-20); Calcium 8.3 mg/dL (8.5-10.5); Carbon Dioxide 27 mmol/L (22-29); Chloride 91 mmol/L (98-107); Globulin 2.6 g/dL (1.3-4.6); Glomerular Filtration Rate 25.8 mL/min (90-130); Glucose 187 mg/dL (65-115); Osmolality Calculated 303 mOsm/kg (285-295); Sodium 136 mmol/L (136-145); Total Bilirubin 1.3 mg/dL (0.15-1.2); Total Protein 5.7 g/dL (6.6-8.7)
[2022-09-22 11:53] LABS: Ammonia 31 umol/L (16-60)
--- NOTE | 2022-09-22 12:00 | P.MISC_ITS ---
Miscellaneous Note Note: Patient overnight developed cardiogenic shock and was moved to ICU. He is currently on Levophed of 20. Mean arterial pressure have been maintained around 70. Heart rate controlled on amiodarone at 0.5. Examination patient lying comfortably in bed, alert and oriented x3, slightly slow to respond, seems to have visual disturbance but he is not aware of this. Not able to comprehend time on the clock. Currently denying flat in the bed on 2 L. Denies any difficulty breathing. Patient denies any chest pain. Bedside echocardiogram done by myself shows severe cardiomyopathy with dilated LA LV, RA with EF of around 10%, global hypokinesia, possible RV hypokinesia, moderate TR, IVC dilated up to 2. Plan: Keep mean artery pressure 65. Start on dobutamine of 2.5. Blood pressure remains stable can up to 5. Start on normal saline at 50 cc/h while monitoring for fluid overload. Delgadillo catheter. Stat CT head to rule out a stroke. Patient received Lovenox last night. For now we will continue. Not sure of timing of onset of symptoms. Cardiac consultation for cardiogenic shock. Await official echocardiogram report. Repeat BMP and lactate in few hours. Patient's care discussed in detail with his sister over the phone and in person. We discussed that unfortunately he has severe cardiogenic shock with EF around 10% with signs of multiorgan failure including AZEB and liver dysfunction with the possibility of stroke given visual disturbance. Later care discussed in detail with cardiology on-call who suggested patient needs Impella most likely biventricular Impella given biventricular heart failure. Suggest patient to be transferred to a higher facility with heart failure speciality. Patient's care discussed in detail with multiple physicians at multiple hospital. Discussed case with heart failure director at [facility] who suggest patient is a good candidate for biventricular Impella but that will only be for short- term while patient requires long-term treatment including possible LVAD or heart transplant which she is not a good candidate for and suggest patient to be transitioned over to hospice. Care discussed in detail with heart care team at [facility] who accepted the patient and beds are awaited. Severity of disease discussed in detail with patient, patient's sister at bedside and over the phone. Patient would want to continue care currently but does not want to be intubated or go through chest compressions if it comes to it. CODE STATUS changed to DNR/DNI. The high probability of a clinically significant, sudden or life threatening deterioration of the patient's [cardiac, bedside echo, renal, goals of care discussion, system(s) required my full and direct attention, intervention and personal management. The critical care time is as shown. This time is in addit ion to time spent performing any reported procedures but includes the following: [x] Data and vital sign review and interpretation [x] Patient assessment, examination and intervention [x] Documentation [x] Medication orders and management 80
[2022-09-22 12:04] LABS: Alanine Aminotransferase 2879 U/L (0-41)
[2022-09-22 12:15] LABS: Aspartate Amino Transferase 3959 U/L (0-40)
[2022-09-22 12:37] LABS: Lactate (Lactic Acid level) 6.8 mmol/L (0.5-2.2)
[2022-09-22] MEDS: insulin regular-human 10 UNIT in SYRINGE 1 EACH 10000 UNIT IVP (13:28)
--- NOTE | 2022-09-22 13:46 | PC.NURSE ---
1000 doctor here aware of increasing of levophed gtt and blood pressure remaining low , amiodorone gtt infusing . attempt to insert castellon with stricture unable to insert . with nuro check with doctor could not tell time accurate but knew day and place. aware status critical family called
--- NOTE | 2022-09-22 14:20 | PC.NURSE ---
sister here talked with doctor at length aware status grim on several medication for rhythm and blood pressure no urine output noted bladder scan done no urine output attempting to make arrangements for transfer at this time for cardiogenic shock and multi organ failure .
--- NOTE | 2022-09-22 14:23 | PM.TDS ---
Transfer Summary Providers Date of Admission: 09/21/22 15:14 Date of Discharge/Transfer: 09/22/22 Attending Provider at Admission: Chivo Holder MD Attending Provider at Transfer: Chivo Holder MD Transfer Plans: Anticipated date of transfer: 09/22/22. Receiving Facility: [facility]. Receiving Provider: Dr. Holcomb. Diagnoses at Discharge Discharge Diagnosis (1) Cardiogenic shock: Status: Acute (2) AZEB (acute kidney injury): Status: Acute (3) Shock liver: Status: Acute (4) Elevated lactic acid level: Status: Acute (5) Non-compliance: Status: Acute (6) Atrial fibrillation with rapid ventricular response: Status: Acute (7) Non-ischemic cardiomyopathy: Status: Acute (8) Stroke: Details from hospital stay: Early acute to subacute stroke. Concern for watershed stroke. Not sure since then patient has been having symptoms. Patient already on anticoagulation with 1 dose of Eliquis yesterday and Lovenox overnight. Patient not a good candidate for tPA. Target blood pressures 180/100 mmHg. PT/OT evaluation as per patient's clinical picture. Status: Acute Reason for Visit Reason for Visit Chest pain and SOB Brief History: Ayo Ann is a 56 year old male with past medical history of nonischemic cardiomyopathy secondary to alcohol abuse, noncompliance last seen by cardiology in 2011, chronic smoker, last known EF of around 50% presents to the ER today because of chest pain along with difficulty in breathing.? In the ER he was found to be in atrial fibrillation with rapid ventricular response.? Patient denies any nausea, vomiting, headache, dizziness.? He is a current smoker.? Denies any current alcohol or recreational drug abuse.? Not on any medications and has not seen a physician in a long time. In the ER he was started on Cardizem drip after Cardizem push.? Currently on Cardizem drip of 5.? Blood pressures 109/71 with heart rate running in 150s.? Patient sitting comfortably in bed without complaining of palpitations or dizziness or chest pain currently. Hospital Course Hospital Course Patient was initially admitted to cardiac stepdown unit and started on amiodarone drip for atrial fibrillation with rapid ventricular response because of borderline blood pressures. He responded well to the treatment and heart rate improved with blood pressures improving as well. Overnight patient developed borderline blood pressures for which he was transferred to the ICU with concerns for cardiogenic shock. Repeat blood work showed patient developing acute kidney failure creatinine worsening to levels over 2, potassium to levels over 6, shock liver with LFTs worsening to more than 3000. Patient did high pressor support with Levophed off around 20 and dobutamine of 2.5. Patient continues to remain oliguric. Echocardiogram was done which showed severe failure with EF of around 5 to 10% with moderate TR, RV diastolic and systolic dysfunction. Cardiology was consulted. Patient also had an event of change in his vision which he was not able to quantify for duration. CT head was done which is concerning for a acute to subacute right MCA infarct with concern for watershed infarct. Patient had already been on Eliquis and continued on Lovenox and was not a good candidate for tPA given unknown duration. 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 Because of lack of both possible transfer to a higher center discussed in detail with patient and patient's family and they were agreeable. Patient was accepted at [facility] by Dr. Holcomb and is being transferred through air in critical condition on pressors for further evaluation and management. Family understands the critical nature and possibly terminal nature of patient's illness. Physical Exam Narrative: General: No acute distress, tired appearing, weak appearing, slow to respond not confused, AO x3 HEENT: PERRLA, pupils bilaterally equal and reactive Chest:Bilateral bronchial breath sounds, occasional rhonchi present all over the lung paul, fine crackles at bases CVS: S1-S2 regular, pansystolic murmur present at apex and fourth intercostal left parasternal region, S3 gallop Abdomen: Soft, nontender, no organomegaly, bowel sounds present, morbidly obese Neuro: No focal deficits, no facial deformity, AO x3, power 5/5 in all limbs TS Data Studies Completed and Pending Pending at discharge Category Date Time Status Blood Culture Stat Lab 09/22/22 07:23 Results CMP [Comprehensive Metabolic Panel] Routine Lab 09/22/22 18:00 Ordered Complete Blood Count w/Auto AM LABS Lab 09/23/22 04:00 Ordered Comprehensive Metabolic Panel AM LABS Lab 09/23/22 04:00 Ordered Labs from last 24 hours 09/22/22 09/22/22 09/22/22 11:24 11:24 11:24 WBC RBC Hgb Hct MCV MCH MCHC RDW Plt Count MPV Neut % (Auto) Lymph % (Auto) Eddy % (Auto) Eos % (Auto) Baso % (Auto) Neut # (Auto) Lymph # (Auto) Eddy # (Auto) Eos # (Auto) Baso # (Auto) Nucleated RBC % (auto) Nucleated RBCs # PT INR D-Dimer Sodium 136 Potassium 6.0 H Chloride 91 L Carbon Dioxide 27 Anion Gap 24.0 H BUN 57 H Creatinine 2.6 H GFR Calculation 25.8 L Glucose 187 H Estimat Average Glucose Hemoglobin A1c Calculated Osmolality 303 H Lactate 6.8 H* Calcium 8.3 L Phosphorus Magnesium Iron TIBC % Saturation Unsat Iron Binding Total Bilirubin 1.3 H AST 3959 H ALT 2879 H Alkaline Phosphatase 91 Ammonia 31 Troponin T 120 Minute Delta Troponin T Troponin T Hi Sens 6Hr Troponin T Hi Sens 6Hr Delta Total Protein 5.7 L Albumin 3.1 L Globulin 2.6 Triglycerides Cholesterol LDL Cholesterol, Calc Total VLDL Cholesterol HDL Cholesterol Cholesterol/HDL Ratio Vitamin B12 Folate Procalcitonin TSH Urine Color Urine Appearance Urine pH Ur Specific [place] Urine Protein Urine Glucose (UA) Urine Ketones Urine Blood Urine Nitrate Urine Bilirubin Urine Urobilinogen Ur Leukocyte Esterase Urine RBC Urine WBC Ur Squamous Epith Cells Amorphous Sediment Urine Bacteria Hyaline Casts Urine Mucus Urine Opiates Screen Ur Barbiturates Screen Ur Phencyclidine Scrn Ur Amphetamines Screen U Benzodiazepines Scrn Urine Cocaine Screen U Marijuana (THC) Screen Ethyl Alcohol Coronavirus 229E (PCR) Hepatitis A IgM Ab Hep Bs Antigen Hep Bs Antibody Hep B Core Total Ab Hepatitis C Antibody SARS-CoV-2 (PCR) SARS-CoV-2 Ag (Rapid) 09/22/22 09/22/22 09/22/22 07:25 07:25 07:23 WBC RBC Hgb Hct MCV MCH MCHC RDW Plt Count MPV Neut % (Auto) Lymph % (Auto) Eddy % (Auto) Eos % (Auto) Baso % (Auto) Neut # (Auto) Lymph # (Auto) Eddy # (Auto) Eos # (Auto) Baso # (Auto) Nucleated RBC % (auto) Nucleated RBCs # PT INR D-Dimer Sodium Potassium Chloride Carbon Dioxide Anion Gap BUN Creatinine GFR Calculation Glucose Estimat Average Glucose Hemoglobin A1c Calculated Osmolality Lactate 9.4 H* Calcium Phosphorus Magnesium Iron TIBC % Saturation Unsat Iron Binding Total Bilirubin AST ALT Alkaline Phosphatase Ammonia Troponin T 120 Minute Delta Troponin T Troponin T Hi Sens 6Hr Troponin T Hi Sens 6Hr Delta Total Protein Albumin Globulin Triglycerides Cholesterol LDL Cholesterol, Calc Total VLDL Cholesterol HDL Cholesterol Cholesterol/HDL Ratio Vitamin B12 Folate Procalcitonin TSH Urine Color Urine Appearance Urine pH Ur Specific [place] Urine Protein Urine Glucose (UA) Urine Ketones Urine Blood Urine Nitrate Urine Bilirubin Urine Urobilinogen Ur Leukocyte Esterase Urine RBC Urine WBC Ur Squamous Epith Cells Amorphous Sediment Urine Bacteria Hyaline Casts Urine Mucus Urine Opiates Screen Ur Barbiturates Screen Ur Phencyclidine Scrn Ur Amphetamines Screen U Benzodiazepines Scrn Urine Cocaine Screen U Marijuana (THC) Screen Ethyl Alcohol Coronavirus 229E (PCR) Not detected Hepatitis A IgM Ab Hep Bs Antigen Hep Bs Antibody Hep B Core Total Ab Hepatitis C Antibody SARS-CoV-2 (PCR) Not detected SARS-CoV-2 Ag (Rapid) Cancelled 09/22/22 09/22/22 09/22/22 07:23 05:00 05:00 WBC RBC Hgb Hct MCV MCH MCHC RDW Plt Count MPV Neut % (Auto) Lymph % (Auto) Eddy % (Auto) Eos % (Auto) Baso % (Auto) Neut # (Auto) Lymph # (Auto) Eddy # (Auto) Eos # (Auto) Baso # (Auto) Nucleated RBC % (auto) Nucleated RBCs # PT INR D-Dimer Sodium 136 Potassium 5.2 H Chloride 94 L Carbon Dioxide 17 L Anion Gap 30.2 H BUN 47 H Creatinine 2.0 H GFR Calculation 34.9 L Glucose 84 Estimat Average Glucose 134 Hemoglobin A1c 6.3 H Calculated Osmolality 293 Lactate Calcium 9.3 Phosphorus 9.9 H* Magnesium 2.3 Iron TIBC % Saturation Unsat Iron Binding Total Bilirubin 1.5 H AST 1489 H ALT 1298 H Alkaline Phosphatase 95 Ammonia Troponin T 120 Minute Delta Troponin T Troponin T Hi Sens 6Hr Troponin T Hi Sens 6Hr Delta Total Protein 6.2 L Albumin 3.3 L Globulin 2.9 Triglycerides 76 Cholesterol 148 LDL Cholesterol, Calc 88 Total VLDL Cholesterol 15 HDL Cholesterol 45 L Cholesterol/HDL Ratio 3.29 Vitamin B12 Folate Procalcitonin TSH Urine Color Urine Appearance Urine pH Ur Specific [place] Urine Protein Urine Glucose (UA) Urine Ketones Urine Blood Urine Nitrate Urine Bilirubin Urine Urobilinogen Ur Leukocyte Esterase Urine RBC Urine WBC Ur Squamous Epith Cells Amorphous Sediment Urine Bacteria Hyaline Casts Urine Mucus Urine Opiates Screen Ur Barbiturates Screen Ur Phencyclidine Scrn Ur Amphetamines Screen U Benzodiazepines Scrn Urine Cocaine Screen U Marijuana (THC) Screen Ethyl Alcohol Coronavirus 229E (PCR) Hepatitis A IgM Ab Non-reactive Hep Bs Antigen Non-reactive Hep Bs Antibody < 3.5 L Hep B Core Total Ab Non-reactive Hepatitis C Antibody Non-reactive SARS-CoV-2 (PCR) SARS-CoV-2 Ag (Rapid) 09/22/22 09/21/22 09/21/22 05:00 18:30 18:30 WBC 16.7 H RBC 4.14 Hgb 13.0 Hct 45.6 MCV 110.1 H D MCH 31.4 MCHC 28.5 L D RDW 16.3 H Plt Count 327 MPV 9.9 Neut % (Auto) 87.1 Lymph % (Auto) 3.5 Eddy % (Auto) 8.5 Eos % (Auto) 0.0 Baso % (Auto) 0.2 Neut # (Auto) 14.58 H Lymph # (Auto) 0.6 L Eddy # (Auto) 1.4 H Eos # (Auto) 0.0 Baso # (Auto) 0.0 Nucleated RBC % (auto) 0 Nucleated RBCs # 0.0 PT INR D-Dimer Sodium Potassium Chloride Carbon Dioxide Anion Gap BUN Creatinine GFR Calculation Glucose Estimat Average Glucose Hemoglobin A1c Calculated Osmolality Lactate Calcium Phosphorus Magnesium Iron TIBC % Saturation Unsat Iron Binding Total Bilirubin AST ALT Alkaline Phosphatase Ammonia Troponin T 120 Minute Delta Troponin T Troponin T Hi Sens 6Hr Troponin T Hi Sens 6Hr Delta Total Protein Albumin Globulin Triglycerides Cholesterol LDL Cholesterol, Calc Total VLDL Cholesterol HDL Cholesterol Cholesterol/HDL Ratio Vitamin B12 Folate Procalcitonin TSH Urine Color Yellow Urine Appearance Clear Urine pH 5 Ur Specific [place] 1.015 Urine Protein 1+ H Urine Glucose (UA) Norm Urine Ketones Negative Urine Blood Neg Urine Nitrate Negative Urine Bilirubin Neg Urine Urobilinogen Neg Ur Leukocyte Esterase Negative Urine RBC 0-4 H Urine WBC 0-4 H Ur Squamous Epith Cells 0-4 H Amorphous Sediment Not Reportable Urine Bacteria Trace Hyaline Casts 5-10 H Urine Mucus Trace Urine Opiates Screen Negative Ur Barbiturates Screen Negative Ur Phencyclidine Scrn Negative Ur Amphetamines Screen Negative U Benzodiazepines Scrn Negative Urine Cocaine Screen Negative U Marijuana (THC) Screen Negative Ethyl Alcohol Coronavirus 229E (PCR) Hepatitis A IgM Ab Hep Bs Antigen Hep Bs Antibody Hep B Core Total Ab Hepatitis C Antibody SARS-CoV-2 (PCR) SARS-CoV-2 Ag (Rapid) 09/21/22 09/21/22 09/21/22 18:30 18:30 16:20 WBC RBC Hgb Hct MCV MCH MCHC RDW Plt Count MPV Neut % (Auto) Lymph % (Auto) Eddy % (Auto) Eos % (Auto) Baso % (Auto) Neut # (Auto) Lymph # (Auto) Eddy # (Auto) Eos # (Auto) Baso # (Auto) Nucleated RBC % (auto) Nucleated RBCs # PT 17.10 H INR 1.36 H D-Dimer Sodium Potassium Chloride Carbon Dioxide Anion Gap BUN Creatinine GFR Calculation Glucose Estimat Average Glucose Hemoglobin A1c Calculated Osmolality Lactate Calcium Phosphorus Magnesium Iron TIBC % Saturation Unsat Iron Binding Total Bilirubin AST ALT Alkaline Phosphatase Ammonia Troponin T 120 Minute Delta Troponin T Troponin T Hi Sens 6Hr 60.39 H Troponin T Hi Sens 6Hr Delta 4.39 Total Protein Albumin Globulin Triglycerides Cholesterol LDL Cholesterol, Calc Total VLDL Cholesterol HDL Cholesterol Cholesterol/HDL Ratio Vitamin B12 Folate 19.3 Procalcitonin TSH Urine Color Urine Appearance Urine pH Ur Specific [place] Urine Protein Urine Glucose (UA) Urine Ketones Urine Blood Urine Nitrate Urine Bilirubin Urine Urobilinogen Ur Leukocyte Esterase Urine RBC Urine WBC Ur Squamous Epith Cells Amorphous Sediment Urine Bacteria Hyaline Casts Urine Mucus Urine Opiates Screen Ur Barbiturates Screen Ur Phencyclidine Scrn Ur Amphetamines Screen U Benzodiazepines Scrn Urine Cocaine Screen U Marijuana (THC) Screen Ethyl Alcohol Coronavirus 229E (PCR) Hepatitis A IgM Ab Hep Bs Antigen Hep Bs Antibody Hep B Core Total Ab Hepatitis C Antibody SARS-CoV-2 (PCR) SARS-CoV-2 Ag (Rapid) 09/21/22 09/21/22 09/21/22 14:08 12:24 12:24 WBC RBC Hgb Hct MCV MCH MCHC RDW Plt Count MPV Neut % (Auto) Lymph % (Auto) Eddy % (Auto) Eos % (Auto) Baso % (Auto) Neut # (Auto) Lymph # (Auto) Eddy # (Auto) Eos # (Auto) Baso # (Auto) Nucleated RBC % (auto) Nucleated RBCs # PT INR D-Dimer 1.36 H Sodium Potassium Chloride Carbon Dioxide Anion Gap BUN Creatinine GFR Calculation Glucose Estimat Average Glucose Hemoglobin A1c Calculated Osmolality Lactate Calcium Phosphorus Magnesium Iron TIBC % Saturation Unsat Iron Binding Total Bilirubin AST ALT Alkaline Phosphatase Ammonia Troponin T 120 Minute 56.34 H Delta Troponin T 0.34 Troponin T Hi Sens 6Hr Troponin T Hi Sens 6Hr Delta Total Protein Albumin Globulin Triglycerides Cholesterol LDL Cholesterol, Calc Total VLDL Cholesterol HDL Cholesterol Cholesterol/HDL Ratio Vitamin B12 1310 H Folate Procalcitonin TSH 4.18 Urine Color Urine Appearance Urine pH Ur Specific [place] Urine Protein Urine Glucose (UA) Urine Ketones Urine Blood Urine Nitrate Urine Bilirubin Urine Urobilinogen Ur Leukocyte Esterase Urine RBC Urine WBC Ur Squamous Epith Cells Amorphous Sediment Urine Bacteria Hyaline Casts Urine Mucus Urine Opiates Screen Ur Barbiturates Screen Ur Phencyclidine Scrn Ur Amphetamines Screen U Benzodiazepines Scrn Urine Cocaine Screen U Marijuana (THC) Screen Ethyl Alcohol < 10 Coronavirus 229E (PCR) Hepatitis A IgM Ab Hep Bs Antigen Hep Bs Antibody Hep B Core Total Ab Hepatitis C Antibody SARS-CoV-2 (PCR) SARS-CoV-2 Ag (Rapid) 09/21/22 09/21/22 12:24 12:24 WBC RBC Hgb Hct MCV MCH MCHC RDW Plt Count MPV Neut % (Auto) Lymph % (Auto) Eddy % (Auto) Eos % (Auto) Baso % (Auto) Neut # (Auto) Lymph # (Auto) Eddy # (Auto) Eos # (Auto) Baso # (Auto) Nucleated RBC % (auto) Nucleated RBCs # PT INR D-Dimer Sodium Potassium Chloride Carbon Dioxide Anion Gap BUN Creatinine GFR Calculation Glucose Estimat Average Glucose Hemoglobin A1c Calculated Osmolality Lactate Calcium Phosphorus Magnesium 1.9 Iron 31 L TIBC 338 % Saturation 9.1 L Unsat Iron Binding 307 Total Bilirubin AST ALT Alkaline Phosphatase Ammonia Troponin T 120 Minute Delta Troponin T Troponin T Hi Sens 6Hr Troponin T Hi Sens 6Hr Delta Total Protein Albumin Globulin Triglycerides Cholesterol LDL Cholesterol, Calc Total VLDL Cholesterol HDL Cholesterol Cholesterol/HDL Ratio Vitamin B12 Folate Procalcitonin 0.06 TSH Urine Color Urine Appearance Urine pH Ur Specific [place] Urine Protein Urine Glucose (UA) Urine Ketones Urine Blood Urine Nitrate Urine Bilirubin Urine Urobilinogen Ur Leukocyte Esterase Urine RBC Urine WBC Ur Squamous Epith Cells Amorphous Sediment Urine Bacteria Hyaline Casts Urine Mucus Urine Opiates Screen Ur Barbiturates Screen Ur Phencyclidine Scrn Ur Amphetamines Screen U Benzodiazepines Scrn Urine Cocaine Screen U Marijuana (THC) Screen Ethyl Alcohol Coronavirus 229E (PCR) Hepatitis A IgM Ab Hep Bs Antigen Hep Bs Antibody Hep B Core Total Ab Hepatitis C Antibody SARS-CoV-2 (PCR) SARS-CoV-2 Ag (Rapid) Completed Studies During Hospitalization Category Date Time Status CT chest abdomen pelvis [[place] [id number] Cat Scan 09/22/22 07:00 Completed ] Routine CT head wo con* [id number] Stat Cat Scan 09/22/22 10:33 Completed XR chest 1V portable [id number] Urgent Exams 09/21/22 12:23 Completed CV. echo complete* [id number] Stat Ultrasound 09/22/22 07:00 Completed Laboratory Last Values WBC 16.7 10^3/uL (4.0-10.0) H 09/22/22 05:00 RBC 4.14 10^6/uL (4.1-5.3) 09/22/22 05:00 Hgb 13.0 g/dL (11.7-16.6) 09/22/22 05:00 Hct 45.6 % (42.0-52.0) 09/22/22 05:00 MCV 110.1 fl (80-94) H D 09/22/22 05:00 MCH 31.4 pg (28.0-34.0) 09/22/22 05:00 MCHC 28.5 g/dL (30.0-36.0) L D 09/22/22 05:00 RDW 16.3 % (12.1-15.1) H 09/22/22 05:00 Plt Count 327 10^3/cmm (130-400) 09/22/22 05:00 MPV 9.9 fL (7.4-10.4) 09/22/22 05:00 Neut % (Auto) 87.1 % 09/22/22 05:00 Lymph % (Auto) 3.5 % 09/22/22 05:00 Eddy % (Auto) 8.5 % 09/22/22 05:00 Eos % (Auto) 0.0 % 09/22/22 05:00 Baso % (Auto) 0.2 % 09/22/22 05:00 Neut # (Auto) 14.58 10^3/uL (1.8-7.7) H 09/22/22 05:00 Lymph # (Auto) 0.6 10^3/uL (0.8-4.8) L 09/22/22 05:00 Eddy # (Auto) 1.4 10^3/uL (0.2-0.9) H 09/22/22 05:00 Eos # (Auto) 0.0 10^3/uL (0.0-0.8) 09/22/22 05:00 Baso # (Auto) 0.0 10^3/uL (0.0-0.1) 09/22/22 05:00 Nucleated RBC % (auto) 0 % 09/22/22 05:00 Nucleated RBCs # 0.0 /100WBC 09/22/22 05:00 PT 17.10 SECONDS (12.1-14.9) H 09/21/22 16:20 INR 1.36 (0.8-1.2) H 09/21/22 16:20 D-Dimer 1.36 ug/mIFEU (0-0.59) H 09/21/22 12:24 Sodium 136 mmol/L (136-145) 09/22/22 11:24 Potassium 6.0 mmol/L (3.5-5.1) H 09/22/22 11:24 Chloride 91 mmol/L (98-107) L 09/22/22 11:24 Carbon Dioxide 27 mmol/L (22-29) 09/22/22 11:24 Anion Gap 24.0 (5-19) H 09/22/22 11:24 BUN 57 mg/dL (6-20) H 09/22/22 11:24 Creatinine 2.6 mg/dL (0.7-1.2) H 09/22/22 11:24 GFR Calculation 25.8 mL/min (90-130) L 09/22/22 11:24 Glucose 187 mg/dL (65-115) H 09/22/22 11:24 Estimat Average Glucose 134 09/22/22 05:00 Hemoglobin A1c 6.3 % (4.0-6.0) H 09/22/22 05:00 Calculated Osmolality 303 mOsm/kg (285-295) H 09/22/22 11:24 Lactate 6.8 mmol/L (0.5-2.2) H* 09/22/22 11:24 Calcium 8.3 mg/dL (8.5-10.5) L 09/22/22 11:24 Phosphorus 9.9 mg/dL (2.5-4.5) H* 09/22/22 05:00 Magnesium 2.3 mg/dL (1.7-2.3) 09/22/22 05:00 Iron 31 ug/dL (59-158) L 09/21/22 12:24 TIBC 338 mcg/dl 09/21/22 12:24 % Saturation 9.1 % (20-50) L 09/21/22 12:24 Unsat Iron Binding 307 ug/dL (112-347) 09/21/22 12:24 Total Bilirubin 1.3 mg/dL (0.15-1.2) H 09/22/22 11:24 AST 3959 U/L (0-40) H 09/22/22 11:24 ALT 2879 U/L (0-41) H 09/22/22 11:24 Alkaline Phosphatase 91 U/L (40-130) 09/22/22 11:24 Ammonia 31 umol/L (16-60) 09/22/22 11:24 Troponin T Baseline 56 ng/L (0-15) H 09/21/22 12:24 Troponin T 120 Minute 56.34 ng/L (0-15) H 09/21/22 14:08 Delta Troponin T 0.34 ABS# (0-10) 09/21/22 14:08 Troponin T Hi Sens 6Hr 60.39 ng/L (0-15) H 09/21/22 18:30 Troponin T Hi Sens 6Hr Delta 4.39 ng/L (0-12) 09/21/22 18:30 NT-Pro-B Natriuret Pep 9524 pg/mL (0-125) H 09/21/22 12:24 Total Protein 5.7 g/dL (6.6-8.7) L 09/22/22 11:24 Albumin 3.1 g/dL (3.5-5.2) L 09/22/22 11:24 Globulin 2.6 g/dL (1.3-4.6) 09/22/22 11:24 Triglycerides 76 mg/dL (0-150) 09/22/22 05:00 Cholesterol 148 mg/dL (0-200) 09/22/22 05:00 LDL Cholesterol, Calc 88 mg/dL (50-129) 09/22/22 05:00 Total VLDL Cholesterol 15 mg/dL (0-30) 09/22/22 05:00 HDL Cholesterol 45 mg/dL (60-100) L 09/22/22 05:00 Cholesterol/HDL Ratio 3.29 mg/dL (1.0-5.00) 09/22/22 05:00 Vitamin B12 1310 pg/mL (232-1245) H 09/21/22 12:24 Folate 19.3 ng/mL (4.5-32.2) 09/21/22 18:30 Procalcitonin 0.06 ng/mL (0-0.5) 09/21/22 12:24 Procalcitonin 0.06 ng/mL (0-0.5) 09/21/22 12:24 TSH 4.18 uIU/mL (0.27-4.20) 09/21/22 12:24 Urine Color Yellow (Yellow) 09/21/22 18:30 Urine Appearance Clear (CLEAR) 09/21/22 18:30 Urine pH 5 (5-7) 09/21/22 18:30 Ur Specific [place] 1.015 (1.005-1.030) 09/21/22 18:30 Urine Protein 1+ (Negative) H 09/21/22 18:30 Urine Glucose (UA) Norm (Normal) 09/21/22 18:30 Urine Ketones Negative (Negative) 09/21/22 18:30 Urine Blood Neg (Negative) 09/21/22 18:30 Urine Nitrate Negative (Negative) 09/21/22 18:30 Urine Bilirubin Neg (Negative) 09/21/22 18:30 Urine Urobilinogen Neg mg/dL (Negative) 09/21/22 18:30 Ur Leukocyte Esterase Negative (Negative) 09/21/22 18:30 Urine RBC 0-4 /hpf (0-2) H 09/21/22 18:30 Urine WBC 0-4 /hpf (0-5) H 09/21/22 18:30 Ur Squamous Epith Cells 0-4 /hpf (0-5) H 09/21/22 18:30 Amorphous Sediment Not Reportable 09/21/22 18:30 Urine Bacteria Trace /hpf (NONE) 09/21/22 18:30 Hyaline Casts 5-10 /lpf H 09/21/22 18:30 Urine Mucus Trace /hpf 09/21/22 18:30 Urine Opiates Screen Negative ng/mL (Negative) 09/21/22 18:30 Ur Barbiturates Screen Negative ng/mL (Negative) 09/21/22 18:30 Ur Phencyclidine Scrn Negative ng/mL (Negative) 09/21/22 18:30 Ur Amphetamines Screen Negative ng/mL (Negative) 09/21/22 18:30 U Benzodiazepines Scrn Negative ng/mL (Negative) 09/21/22 18:30 Urine Cocaine Screen Negative ng/mL (Negative) 09/21/22 18:30 U Marijuana (THC) Screen Negative ng/mL (Negative) 09/21/22 18:30 Ethyl Alcohol < 10 mg/dL (0-10) 09/21/22 12:24 Coronavirus 229E (PCR) Not detected (NOT DETECT) 09/22/22 07:25 Hepatitis A IgM Ab Non-reactive (Nonreactive) 09/22/22 07:23 Hep Bs Antigen Non-reactive (Nonreactive) 09/22/22 07:23 Hep Bs Antibody < 3.5 (11.5-1000) L 09/22/22 07:23 Hep B Core Total Ab Non-reactive (Nonreactive) 09/22/22 07:23 Hepatitis C Antibody Non-reactive (Nonreactive) 09/22/22 07:23 SARS-CoV-2 (PCR) Not detected (NOT DETECT) 09/22/22 07:25 SARS-CoV-2 Ag (Rapid) Cancelled 09/22/22 07:25 Radiology Impressions Chest X-Ray 09/21/22 12:23 IMPRESSION: Mild interstitial thickening similar to prior studies. No pneumonia. Chest/Abdomen/Pelvis CT 09/22/22 07:00 IMPRESSION: 1. Cardiomegaly. 2. Small bilateral pleural effusions with compressive atelectasis. 3. Moderate centrilobular emphysematous changes are present. 4. 6 mm and smaller bilateral pulmonary nodules. For patients at low risk (minimal or absent history of smoking and of other known risk factors), no routine follow-up is indicated. For patients at high risk (history of smoking or of other known risk factors), consider optional CT Chest at 12 IMPRESSION: 1. Dense material filling gallbladder lumen most likely representing sludge or small stones with diffuse edematous gallbladder wall thickening suggesting cholecystitis. Ultrasound could be considered to further define. 2. A small volume of intra-abdominal ascites is present. 3. Mild wall thickening of the ascending colon may be secondary to incomplete distension versus colitis. 4. There is nonspecific urinary bladder wall thickening, under distention versus cystitis. Consider urinalysis. Head CT 09/22/22 10:33 IMPRESSION: Findings appear consistent with an acute or early subacute infarct in the right parietal lobe. No acute hemorrhage. ADDENDUM: 09/22/22 1112 The infarct is favored to be within the right MCA territory. MRI could better assess the extent of ischemia. THIS REPORT CONTAINS FINDINGS THAT MAY BE CRITICAL TO PATIENT CARE. The findings were verbally communicated via telephone conference with CHIVO HOLDER at 11:10 AM [employer] GRINDER on 09/22/2022. The findings were acknowledged and understood. Echocardiogram: FINDINGS ?Left Ventricle ?Technically limited quality echocardiogram.? Left ventricle is ?dilated.? LV systolic function is severely reduced with EF of 5- ?10%.? Severe global hypokinesis is seen. ?Right Ventricle ?Severe hypokinesis. ?Right Atrium ?Severely dilated ?Left Atrium ?Dilated ?Mitral Valve ?Structurally normal. Moderate mitral regurgitation. ?Aortic Valve ?Aortic valve is thickened. No significant stenosis. ?Tricuspid Valve ?Moderate to severe tricuspid regurgitation. In some views, there ?is echogenic structure seen close to tricuspid valve. It may be ?artifact.? RVSP is 35-40mmHg. This is consistent with mild ?pulmonary hypertension. ?Pulmonic Valve ?Not well visualized ?Pericardium ?Normal ?Aorta ?Not well visualized ?IVC ?Appears to be normal ?CONCLUSIONS ?Left ventricle is dilated. ?LV systolic function is severely reduced with EF of 5 to 10%. ?Severe hypokinesis of right ventricular ?Biatrial dilation ?Moderate mitral regurgitation ?Moderate to severe tricuspid regurgitation. In some views, there ?is echogenic structure seen close to tricuspid valve. It may be ?attenuation artifact. YUSEF can be considered once patient is ?stable ?Mild pulmonary hypertension ?No comparison studies are available ?Jcarlos Andujar MD ?(Electronically Signed) ?Final Date:? ? ? 22 September 2022 ? 11:31 Recent Clincial Data Last Vital Signs Temp 97.3 F L 09/22/22 13:15 Pulse 117 H 09/22/22 13:30 Resp 15 09/22/22 13:30 BP 98/62 09/22/22 13:30 Pulse Ox 95 09/22/22 13:30 O2 Del Method 09/22/22 08:18 O2 Flow Rate 2 09/22/22 08:18 Vital Signs Temp Pulse Resp BP Pulse Ox O2 Del Method O2 Flow Rate 09/22/22 13:30 117 H 15 98/62 95 09/22/22 13:15 97.3 F L 89 16 99/64 95 09/22/22 13:00 94 19 H 106/64 94 09/22/22 12:45 85 12 104/67 98 09/22/22 12:30 89 18 98/59 94 09/22/22 12:15 94 19 H 09/22/22 12:00 89 24 H 96/60 94 09/22/22 11:45 85 15 101/75 97 09/22/22 11:30 86 13 118/87 96 09/22/22 11:15 111 H 14 101/73 93 09/22/22 11:00 90 16 114/65 86 L 09/22/22 10:59 91 21 H 71 L 09/22/22 10:30 98 90/62 91 09/22/22 10:15 90 13 94/80 90 09/22/22 10:00 88/62 90 09/22/22 09:45 88 10 L 89/48 88 L 09/22/22 09:30 81 10 L 79/60 85 L 09/22/22 09:15 92 12 84/51 94 09/22/22 09:00 80 16 77/52 93 09/22/22 08:45 84 14 79/56 94 09/22/22 08:30 80 13 98 09/22/22 08:15 96 15 85/61 92 09/22/22 08:18 103 H 16 93 Nasal Cannula 2 09/22/22 08:05 94 16 93 Nasal Cannula 2 09/22/22 08:00 94 15 75/48 88 L 09/22/22 07:45 93 19 H 72/55 89 L 09/22/22 07:30 94 14 92/55 92 09/22/22 07:15 23 H 83/51 94 09/22/22 07:00 108 H 16 70/56 96 09/22/22 06:45 90 19 H 70/56 94 09/22/22 06:00 85 09/22/22 06:30 90 18 87/51 95 09/22/22 06:00 82 12 89/53 09/22/22 05:30 88 18 84/62 09/22/22 05:00 118 H 27 H 78/62 09/22/22 04:30 119 H 17 91/69 86 L 09/22/22 04:00 119 H 14 88/71 86 L 09/22/22 03:30 120 H 16 87/74 82 L 09/22/22 03:00 111 H 17 101/64 85 L 09/22/22 06:47 85 70/56 09/22/22 04:00 96.9 F L 119 H 17 78/62 93 Nasal Cannula 4 09/22/22 02:30 112 H 15 82/66 93 09/22/22 02:31 101 H 101/64 Intake & Output/Weight 09/20/22 09/21/22 09/22/22 09/23/22 06:59 06:59 06:59 06:59 Intake Total 2284.863 / 2284.863 1201.255 / 1201.255 Output Total 100 / 100 Balance 2184.863 / 2184.863 1201.255 / 1201.255 Weight 60.583 kg Vitals Last Vital Signs Temp 97.3 F L 09/22/22 13:15 Pulse 117 H 09/22/22 13:30 Resp 15 09/22/22 13:30 BP 98/62 09/22/22 13:30 Pulse Ox 95 09/22/22 13:30 O2 Del Method 09/22/22 08:18 O2 Flow Rate 2 09/22/22 08:18 TS Medications Medications Acetaminophen (Acetaminophen 325 Mg Tablet) 650 mg PO Q8H PRN PRN Reason: Mild/Mod Pain Or Temp >/= 101 Budesonide (Budesonide 0.5 Mg/2 Ml Neb) 0.5 mg INHALATION BID.RESPIRATORY [facility] Last Admin: 09/22/22 08:14 Dose: 0.5 mg Calcium Carbonate (Calcium Carbonate 500 Mg Chew Tablet) 1,000 mg PO Q4H PRN PRN Reason: DYSPEPSI Last Admin: 09/21/22 22:13 Dose: 1,000 mg Docusate Sodium (Docusate Sodium 100 Mg Capsule) 100 mg PO BID [facility] Last Admin: 09/22/22 08:51 Dose: 100 mg Enoxaparin Sodium (Enoxaparin 60 Mg/0.6 Ml Syringe) 60 mg SUBCUT DAILY [facility] Last Admin: 09/22/22 10:09 Dose: 60 mg Famotidine (Famotidine 20 Mg/2 Ml Inj) 20 mg IVP Q12H [facility] Last Admin: 09/22/22 06:08 Dose: 20 mg Amiodarone HCl 900 mg/Dextrose/ IV Miscellaneous Supplies 518 mls @ 0 mls/hr IV .Q0M [facility]; Protocol Last Titration: 09/21/22 22:48 Dose: 0.5 mg/min, 17.27 mls/hr Norepinephrine Bitartrate 4 mg (/ Dextrose) 254 mls @ 0 mls/hr IV .Q0M [facility]; Protocol Last Titration: 09/22/22 13:40 Dose: 20 mcg/min, 76.2 mls/hr Sodium Chloride (Sodium Chloride 0.9%) 1,000 mls @ 50 mls/hr IV .Q20H [facility] Last Admin: 09/22/22 11:22 Dose: 50 mls/hr Vancomycin HCl 1,000 mg/ (Sodium Chloride) 250 mls @ 250 mls/hr IV Q24H [facility]; Protocol Last Infusion: 09/22/22 13:40 Dose: Infused Piperacillin Sod/Tazobactam (Sod 3.375 gm/ Sodium Chloride) 50 mls @ 12.5 mls/hr IV Q8H [facility]; Protocol Last Infusion: 09/22/22 13:39 Dose: Infused Dobutamine HCl/Dextrose (Dobutamine Drip) 500 mg in 250 mls @ 0 mls/hr IV .Q0M [facility]; Protocol Last Admin: 09/22/22 11:50 Dose: 2.5 mcg/kg/min, 4.54 mls/hr Ipratropium [place] (Ipratropium 0.5 Mg/2.5 Ml Neb) 0.5 mg INHALATION Q6H.RESP [facility] Last Admin: 09/22/22 08:14 Dose: 0.5 mg Levalbuterol HCl (Levalbuterol 0.63 Mg/3 Ml Neb) 0.63 mg INHALATION Q6H.RESP [facility] Last Admin: 09/22/22 08:14 Dose: 0.63 mg Methylprednisolone Sodium Succinate (Methylprednisolone Sod Succ 40 Mg/Ml Inj) 40 mg IVP Q8H [facility] Last Admin: 09/22/22 14:12 Dose: 40 mg Ondansetron HCl (Ondansetron 2 Mg/Ml Sdv 2 Ml) 4 mg IVP Q8H PRN PRN Reason: vomiting, or N/V if npo Last Admin: 09/21/22 21:00 Dose: 4 mg Discontinued Medications Acetaminophen (Acetaminophen 325 Mg Tablet) 650 mg PO Q6H PRN PRN Reason: Mild/Mod Pain Or Temp >/= 101 Last Admin: 09/21/22 21:02 Dose: 650 mg Amiodarone HCl (Amiodarone 50 Mg/Ml Sdv 3 Ml) 150 mg IVP ONCE ONE Stop: 09/21/22 16:01 Last Admin: 09/21/22 16:49 Dose: 150 mg Apixaban (Apixaban 5 Mg Tablet) 5 mg PO ONCE ONE Stop: 09/21/22 14:40 Last Admin: 09/21/22 15:41 Dose: 5 mg Dextrose (Dextrose 50% Syringe 50 Ml) 50 ml IVP ONCE ONE Stop: 09/21/22 16:04 Last Admin: 09/21/22 17:14 Dose: 50 ml Diltiazem HCl (Diltiazem 5 Mg/Ml Sdv 5 Ml) 20 mg IVP ONCE ONE Stop: 09/21/22 12:27 Last Admin: 09/21/22 12:31 Dose: 20 mg Enoxaparin Sodium (Enoxaparin 60 Mg/0.6 Ml Syringe) 60 mg SUBCUT Q12H [facility] Last Admin: 09/22/22 09:08 Dose: Not Given Furosemide (Furosemide 10 Mg/Ml Sdv 4ml) 40 mg IVP ONCE ONE Stop: 09/21/22 16:04 Last Admin: 09/21/22 17:12 Dose: 40 mg Diltiazem HCl 100 mg/ Sodium (Chloride) 100 mls @ 0 mls/hr IV .Q0M [facility]; Protocol Last Titration: 09/21/22 20:17 Dose: Infused Sodium Chloride (Sodium Chloride 0.9%) 500 mls @ 999 mls/hr IV .Q31M ONE Stop: 09/21/22 14:50 Last Infusion: 09/21/22 20:18 Dose: Infused Insulin Human Regular 10 unit/ (N/A) 0.1 mls @ 0 mls/hr IVP ONCE ONE Stop: 09/21/22 17:01 Last Infusion: 09/21/22 17:34 Dose: Infused Dextrose 35.5 ml/ Sterile (Water 14.5 ml/ N/A) 50 mls @ 600 mls/hr IVP ONCE ONE Stop: 09/21/22 16:49 Last Infusion: 09/21/22 20:18 Dose: Infused Sodium Chloride (Sodium Chloride 0.9%) 500 mls @ 250 mls/hr IV ONCE ONE Stop: 09/21/22 19:32 Last Infusion: 09/21/22 22:03 Dose: Infused Sodium Chloride (Sodium Chloride 0.9%) 250 mls @ 250 mls/hr IV ONCE ONE Stop: 09/22/22 05:54 Last Infusion: 09/22/22 06:31 Dose: Infused Dobutamine HCl/Dextrose (Dobutamine Drip) 500 mg in 250 mls @ 0 mls/hr IV .Q0M [facility]; Protocol Piperacillin Sod/Tazobactam (Sod 3.375 gm/ Sodium Chloride) 50 mls @ 12.5 mls/hr IV Q8H [facility]; Protocol Dextrose 35.5 ml/ Sterile (Water 14.5 ml/ N/A) 50 mls @ 600 mls/hr IVP ONCE ONE Stop: 09/22/22 13:19 Last Infusion: 09/22/22 13:40 Dose: Infused Insulin Human Regular 10 unit/ (N/A) 0.1 mls @ 0 mls/hr IVP ONCE ONE Stop: 09/22/22 13:31 Last Infusion: 09/22/22 13:41 Dose: Infused Methylprednisolone Sodium Succinate (Methylprednisolone Sod Succ 125 Mg/2 Ml Inj) 125 mg IVP ONCE ONE Stop: 09/21/22 17:08 Last Admin: 09/21/22 17:34 Dose: 125 mg Sodium Bicarbonate (Sodium Bicarbonate 1 Meq/Ml Sdv 50ml) 100 meq IV ONCE ONE Stop: 09/22/22 10:18 Last Admin: 09/22/22 11:20 Dose: Not Given Sodium Bicarbonate (Sodium Bicarbonate 8.4% 1 Meq/Ml 50ml Syr) 100 meq IV ONCE ONE Stop: 09/22/22 11:01 Last Admin: 09/22/22 11:06 Dose: 100 meq Allergies trazodone Allergy (Verified 09/21/22 13:58) peritonitis Home Medications Fishbiotic Amoxil 500mg 500 mg PO DAILY 09/21/22 [History Confirmed 09/21/22] aspirin 325 mg tablet 325 mg PO BID PRN Headache 09/21/22 [History Confirmed 09/21/22] multivitamin 1 tab PO DAILY 09/21/22 [History Confirmed 09/21/22] Discharge Plan Discharge Patient Disposition: Xfer Other Condition: Critical Prescriptions: No Action multivitamin Tablet 1 tab PO DAILY aspirin 325 mg Tablet 325 mg PO BID PRN (Reason: Headache) Fishbiotic Amoxil 500mg 500 mg PO DAILY Rx Instructions: for 10 days Discharge Diet: Advance as tolerated Discharge Activity: Increase activity as tolerated Patient Instructions: Opioid Safety Transfer Attestations Time Spent in Transfer Care: critical care time (Taking care of cardiogenic shock, pressor titration, renal dysfunction, acute liver failure, bedside echocardiogram, multiple goals of care discussion, care discussion with multiple physicians at multiple facilities) Critical Care Time (min): 80 Specific Discharge Activities: educating patient, educating and/or supporting family/caregiver, discussing with pcp/other providers, discussing with case assistant/social workers/dc planners, documenting/other paperwork and evaluating patient/reviewing data Time Spent in Smoking Cessation: more than 10 minutes Status at Transfer: Cognitive status at transfer: mildly impaired cognition; Behavioral status at transfer: cooperative; Functional status at transfer: bed bound; Overall status at transfer: patient is not back to baseline Quality Metrics Clinical Quality Measures [ Cerebrovascular Accident { Contraindication to Antithrombotic: None; antithrombotic prescribed; Contraindication to Anticoagulation: None; anticoagulation prescribed; Contraindication to Statin: None; Statin prescribed; Contraindication to tPA: Medical contraindications; Symptom Onset Unknown: Yes; Reason stroke education not provided: Stroke education provided to patient;}] Coding Level of Care Code Acute Code for [facility] Fwd Diagnoses Cardiogenic shock R57.0 AZEB (acute kidney injury) N17.9 Shock liver K72.00 Elevated lactic acid level R79.89 Non-compliance Z91.199 Atrial fibrillation with rapid ventricular response I48.91 Non-ischemic cardiomyopathy I42.8 Stroke I63.9
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
--- NOTE | 2022-09-22 15:15 | PC.NURSE ---
report given airvac loaded transfer at this time
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
== END 2022-09-22 15:32 | disposition short-term general hospital (02) | DRG 308 ==
LOC: ER 14:45 → CSU 15:17 → ICU 09-22 07:14
PROVIDERS: Physician Assistant; Student in an Organized Health Care Education/Training Program; Admitting Provider Student in an Organized Health Care Education/Training Program; Emergency Provider Family Medicine; Visit Provider Student in an Organized Health Care Education/Training Program
DX: I48.91 Unspecified atrial fibrillation (principal); I63.9 Cerebral infarction, unspecified; K72.00 Acute and subacute hepatic failure without coma; R57.0 Cardiogenic shock; J44.1 Chronic obstructive pulmonary disease with (acute) exacerbation; N17.9 Acute kidney failure, unspecified; I50.82 Biventricular heart failure; I42.6 Alcoholic cardiomyopathy; I11.0 Hypertensive heart disease with heart failure; I50.9 Heart failure, unspecified; F10.10 Alcohol abuse, uncomplicated; Y90.0 Blood alcohol level of less than 20 mg/100 ml; H53.9 Unspecified visual disturbance; F17.200 Nicotine dependence, unspecified, uncomplicated; Z91.199 Patient's noncompliance with other medical treatment and regimen due to unspecified reason; Z79.01 Long term (current) use of anticoagulants; Z79.82 Long term (current) use of aspirin; Z66 Do not resuscitate
CPT/HCPCS: 36415; 51702; 70450; 71045; 71250; 74176; 80053; 80061; 80306; 80307; 81001; 82140; 82607; 82746; 83036; 83540; 83550; 83605; 83735; 83880; 84100; 84145; 84443; 84484; 85025; 85378; 85610; 86403; 86705; 86706; 86709; 86803; 87040; 87340; 87449; 87635; 93005; 93306; 94640; 94664; 96365; 96372; 96375; 99291; J0282; J1250; J1650; J1815; J1940; J2405; J2543; J2920; J2930; J3370; J3490; J7030; J7040; J7050; J7060; J7614; J7626; J7644